=== PATIENT | female | born 1940 | race Caucasian/White ===

== ENCOUNTER 2020-01-04 14:53 | Outpatient (CLI) | payer MEDICARE, SELFPAY ==
--- NOTE | 2020-01-04 15:18 | XR_ITS ---
WS: [id number] SHOULDER RIGHT TECHNIQUE: 3 views of the right shoulder CLINICAL INFORMATION: SHOULDER PAIN, RIGHT COMPARISON: None. FINDINGS: Normal acromioclavicular joint. Normal glenohumeral joint. Acromion is normal in appearance. Normal g lenoid. No evidence of acute fracture dislocation. Aortic calcification. 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 No acute fra ctures.
--- NOTE | 2020-01-04 15:18 | XR_ITS ---
WS: [id number] SCREENING DEXA SCAN [facility] CLINICAL INFORMATION: POSTMENOPAUSAL STATUS COMPARISON: None. FINDINGS: The L1-L4 bone mineral density measures 1.070 g/cm2. This corresponds to a T score score of -0.9 and Z score of 0.9. Left femoral neck bone mineral density measures 0.851 g/cm2. This corresponds to a T score of -1.2 an d Z score of 0.8. Right femoral neck bone mineral density measures 0.896 g/cm2. This corresponds to a T score -0.9of an d Z score of 1.2. Mean femoral neck bone mineral density measures 0.874 g/cm2. This corresponds to a T score of -1.1 an d Z score of 1.0. XR/XR DEXA axial skeleton* [id number] IMPRESSION: Osteopenia Patient's FRAX calculated 10 year probability for major osteoporotic fracture i s 15.5 % and osteoporotic hip fracture is 4.7%.
== END 2020-01-04 14:54 | disposition home or self-care (01) ==
PROVIDERS: Family Provider Electrodiagnostic Medicine; PCP Electrodiagnostic Medicine; Visit Provider Electrodiagnostic Medicine
DX: Z78.0 Asymptomatic menopausal state (principal); M19.011 Primary osteoarthritis, right shoulder; M25.511 Pain in right shoulder; M85.89 Other specified disorders of bone density and structure, multiple sites
CPT/HCPCS: 73030; 77080

== ENCOUNTER 2023-07-22 18:34 | Inpatient (IN) | payer MEDICARE, SELFPAY ==
[2023-07-22 18:37] VITALS: BP 110/44; PULSE 83; RESP 17; TEMP 36.4; O2SAT 93; BMI 29.2
--- NOTE | 2023-07-22 18:48 | CTR_ITS ---
PROCEDURE INFORMATION: Exam: CT Abdomen And Pelvis With Contrast Exam date and time: 07/22/2023 8:06 PM Age: 83 years old Clinical indication: Vomiting; Abdominal pain; Generalized; Additional info: Abd pain TECHNIQUE: Imaging protocol: Computed tomography of the abdomen and pelvis with contrast. Radiation optimization: All CT scans at this facility use at least one of these dose optimization techniques: automated exposure control; mA and/or kV adjustment per patient size (includes targeted exams where dose is matched to clinical indication); or iterative reconstruction. Contrast material: OMNI 350; Contrast volume: 100 ml; Contrast route: INTRAVENOUS (IV); COMPARISON: No relevant prior studies available. RADIATION DOSE METRICS: Total DLP (mGy-cm): 679.34 FINDINGS: Heart: Severe mitral annular calcifications present. Coronary arteries: Coronary arterial atherosclerotic calcifications are present. Liver: Normal. No mass. Gallbladder and bile ducts: Normal. No calcified stones. No ductal dilation. Pancreas: Normal. No ductal dilation. Spleen: Normal. No splenomegaly. Adrenal glands: Normal. No mass. Kidneys and ureters: Normal. No hydronephrosis. Stomach and bowel: Short segment of circumferential bowel wall thickening in the proximal transverse colon with no diverticula. Findings can be seen the setting inflammatory or infectious colitis. Appendix: No evidence of appendicitis. Intraperitoneal space: Unremarkable. No free air. No significant fluid collection. Vasculature: Atherosclerotic disease. Lymph nodes: Unremarkable. No enlarged lymph nodes. Urinary bladder: Unremarkable as visualized. Reproductive: Unremarkable as visualized. Bones/joints: Severe degenerative disc disease at L4-L5 and L5-S1 with grade 1 anterolisthesis of L3 on L4. Soft tissues: Unremarkable. CT/CT abdomen pelvis w con* [id number] IMPRESSION: Short segment of circumferential bowel wall thickening in the proximal transverse colon with no diverticula. Findings can be seen the setting inflammatory or infectious colitis. The appendix is not visualized but there are no secondary signs of acute appendicitis.
--- NOTE | 2023-07-22 18:48 | PC.NURSE ---
pt o2 pt taken off o2 at 184
--- NOTE | 2023-07-22 18:51 | ED_ITS ---
HPI - Abdominal Pain 2 General: Chief Complaint: Abdominal Pain Stated Complaint: lower abd pain Time Seen by Provider: 07/22/23 18:38 Source: patient Mode of arrival: ambulatory Limitations: no limitations History of Present Illness: 83-year-old female states 3 to 4 hours a go started having some left lower quadrant abdominal pain states it has been sharp in nature she did vomit once states the pain has been constant she rates it a 7 out of 10 currently she denies any chest pain denies any fevers denies any shortness of breath denies any diarrhea. Associated Symptoms: Reports nausea and vomiting; Denies chills, diarrhea, dysuria and fever(s) Review of Systems 2 Const: Denies: fever(s), chills, body aches or change in appetite ENMT: Denies: throat pain or dental pain Card: Denies: chest pain Resp: Denies: dyspnea GI: Reports: abdominal pain, nausea and vomiting; Denies: diarrhea : Denies: dysuria Musc: Denies: neck pain or back pain Skin/Breast: Denies: rash Neuro: Denies: headache(s) Physical Exam 2 Const: COMMON NORMALS: no acute distress, patient oriented x3 and healthy appearing HENMT: COMMON NORMALS: normocephalic and atraumatic HEAD & SCALP: n ormocephalic and atraumatic Neck/C-Spine: COMMON NORMALS: full ROM and supple Chest: COMMONS NORMALS: normal inspection of the chest Resp: COMMON NORMALS: normal respiratory effort, No use of accessory muscles and clear to auscultation bilaterally AUSCULTATION: clear to auscultation bilaterally Cardio: COMMON NORMALS: regular rate, regular rhythm and No murmurs present (Cardio) RATE: regular rate RHYTHM: regular rhythm GI: COMMON NORMALS: Normal to inspection, nondistended, normoactive bowel sounds present, Soft to palpation and no masses PALPATION: Yes Soft to palpation and Yes Tenderness to palpation present (GI) Details: LLQ Extremity: COMMON NORMALS: normal to inspection and full ROM Neuro: COMMON NORMALS: patient oriented x3, moves all extremities and no focal motor deficits Psych: COMMON NORMALS: mental status grossly normal, Normal thought process present and cooperative THOUGHT PROCESS: Normal thought process present Skin: COMMON NORMALS: no rashes or lesions noted and no wounds GENERAL SKIN EXAM: no rashes or lesions noted Course 2 Vital Signs: Vital signs: Vital Signs Temperature 97.6 F 07/22/23 18:37 Pulse Rate 83 07/22/23 18:37 Respiratory Rate 18 07/22/23 19:37 Blood Pressure 110/44 07/22/23 18:37 Pulse Oximetry 93 07/22/23 18:37 Oxygen Delivery Me thod Nasal Cannula 07/22/23 18:37 Oxygen Flow Rate 3 07/22/23 18:37 MDM - Abdominal Pain Medical Decision Making Patient presents here with abdominal pain does have an elevated white count CT shows a likely colitis she has no signs of ischemic bowel here. She is hypokalemic could be from vomiting will replace her potassium start IV antibiotics I spoke to the hospitalist will admit. Medical Records I reviewed the patient's medical records. Lab Data I reviewed the patient's lab results. 07/22/23 18:44 07/22/23 18:44 Labs/Radiology: Radiology Impressions Abdomen/Pelvis CT 07/22/23 18:48 IMPRESSION: Short segment of circumferential bowel wall thickening in the proximal transverse colon with no diverticula. Findings can be seen the setting inflammatory or infectious colitis. The appendix is not visualized but there are no secondary signs of acute appendicitis. Laboratory Results WBC 27.51 10^3/uL (3.29-11.43) H 07/22/23 18:44 RBC 4.02 10^6/uL (3.85-5.65) 07/22/23 18:44 Hgb 11.60 g/dL (11.27-16.99) 07/22/23 18:44 Hct 35.4 % (36-47) L 07/22/23 18:44 MCV 88.1 fl (85-98) 07/22/23 18:44 MCH 28.9 pg (27-33) 07/22/23 18:44 MCHC 32.8 g/dL (30-55) 07/22/23 18:44 RDW 14.9 % (12.1-15.1) 07/22/23 18:44 Plt Count 76 10^3/cmm (157-399) L 07/22/23 18:44 MPV 13.0 fL (7.4-10.4) H 07/22/23 18:44 Neut % (Auto) 60.3 % 07/22/23 18:44 Lymph % (Auto) 2.6 % 07/22/23 18:44 [place] % (Auto) 35.1 % 07/22/23 18:44 Eos % (Auto) 0.1 % 07/22/23 18:44 Baso % (Auto) 0.1 % 07/22/23 18:44 Neut # (Auto) 16.62 10^3/uL (1.8-7.7) H 07/22/23 18:44 Lymph # (Auto) 0.7 10^3/uL (0.8-4.8) L 07/22/23 18:44 [place] # (Auto) 9.7 10^3/uL (0.2-0.9) H 07/22/23 18:44 Eos # (Auto) 0.0 10^3/uL (0.0-0.8) 07/22/23 18:44 Baso # (Auto) 0.0 10^3/uL (0.0-0.1) 07/22/23 18:44 Nucleated RBC % (auto) 0 % 07/22/23 18:44 Nucleated RBCs # 0.0 /100WBC 07/22/23 18:44 Sodium 143 mmol/L (136-145) 07/22/23 18:44 Potassium 2.4 mmol/L (3.5-5.1) L* 07/22/23 18:44 Chloride 103 mmol/L (98-107) 07/22/23 18:44 Carbon Dioxide 23 mmol/L (22-29) 07/22/23 18:44 Anion Gap 19.4 (5-19) H 07/22/23 18:44 BUN 13 mg/dL (8-23) 07/22/23 18:44 Creatinine 1.1 mg/dL (0.5-0.9) H 07/22/23 18:44 GFR Calculation Not Reportable 07/22/23 18:44 Glucose 120 mg/dL (65-115) H 07/22/23 18:44 Calculated Osmolality 297 mOsm/kg (285-295) H 07/22/23 18:44 Calcium 10.4 mg/dL (8.5-10.5) 07/22/23 18:44 Total Bilirubin 2.1 mg/dL (0.15-1.2) H 07/22/23 18:44 AST 25 U/L (0-32) 07/22/23 18:44 ALT 11 U/L (0-33) 07/22/23 18:44 Alkaline Phosphatase 64 U/L (35-105) 07/22/23 18:44 Total Protein 7.6 g/dL (6.6-8.7) 07/22/23 18:44 Albumin 4.2 g/dL (3.5-5.2) 07/22/23 18:44 Globulin 3.4 g/dL (1.3-4.6) 07/22/23 18:44 Lipase 16 U/L (13-60) 07/22/23 18:44 Urine Color Yellow (Yellow) 07/22/23 19:44 Urine Appearance Clear (CLEAR) 07/22/23 19:44 Urine pH 6.5 (5-7) 07/22/23 19:44 Ur Specific [place] 1.010 (1.005-1.030) 07/22/23 19:44 Urine Protein Neg (Negative) 07/22/23 19:44 Urine Glucose (UA) Norm (Normal) 07/22/23 19:44 Urine Ketones 1+ (Negative) H 07/22/23 19:44 Urine Blood Neg (Negative) 07/22/23 19:44 Urine Nitrate Negative (Negative) 07/22/23 19:44 Urine Bilirubin Neg (Negative) 07/22/23 19:44 Urine Urobilinogen Neg mg/dL (Negative) 07/22/23 19:44 Ur Leukocyte Esterase Trace (Negative) H 07/22/23 19:44 Urine RBC None /hpf (0-2) 07/22/23 19:44 Urine WBC 0-4 /hpf (0-5) H 07/22/23 19:44 Ur Squamous Epith Cells 0-4 /hpf (0-5) H 07/22/23 19:44 Ur Transition Epith Cell 0-4 /hpf 07/22/23 19:44 Amorphous Sediment Not Reportable 07/22/23 19:44 Urine Bacteria Trace /hpf (NONE) 07/22/23 19:44 Urine Mucus 1+ /hpf 07/22/23 19:44 All radiology interpretation(s) finalized by discharge Discharge Plan Discharge Patient Disposition: Admitted As Inpatient Clinical Impression: Abdominal pain, Colitis, Hypokalemia Condition: Stable Referrals: Dave Gross DO [Primary Care Provider] - Coding Level of Care Code ED Shotblast Equipment Operator for Joni iRbera
[2023-07-22 19:16] LABS: Basophils % 0.1 %; Eosinophils % 0.1 %; Hematocrit 35.4 % (36-47); Lymphocytes # 0.7 10^3/uL (0.8-4.8); Lymphocytes % 2.6 %; Mean Corpuscular HGB Conc 32.8 g/dL (30-55); Mean Corpuscular Hemoglobin 28.9 pg (27-33); Mean Corpuscular Volume 88.1 fl (85-98); Monocytes # 9.7 10^3/uL (0.2-0.9); Monocytes % 35.1 %; Neutrophils # 16.62 10^3/uL (1.8-7.7); Neutrophils % 60.3 %; Nucleated Red Blood Cells % 0 %; Platelet Count 76 10^3/cmm (157-399); Red Blood Count 4.02 10^6/uL (3.85-5.65); Red Cell Distribution Width 14.9 % (12.1-15.1); White Blood Count 27.51 10^3/uL (3.29-11.43)
[2023-07-22 19:31] LABS: Alanine Aminotransferase 11 U/L (0-33); Albumin Level 4.2 g/dL (3.5-5.2); Alkaline Phosphatase 64 U/L (35-105); Blood Urea Nitrogen 13 mg/dL (8-23); Calcium 10.4 mg/dL (8.5-10.5); Carbon Dioxide 23 mmol/L (22-29); Chloride 103 mmol/L (98-107); Globulin 3.4 g/dL (1.3-4.6); Glucose 120 mg/dL (65-115); Lipase 16 U/L (13-60); Osmolality Calculated 297 mOsm/kg (285-295); Sodium 143 mmol/L (136-145); Total Bilirubin 2.1 mg/dL (0.15-1.2); Total Protein 7.6 g/dL (6.6-8.7)
[2023-07-22 19:37] VITALS: RESP 18
[2023-07-22] MEDS: morphine 4 mg/mL SDV 1 mL IVP (19:37)
[2023-07-22] MEDS: ondansetron 2 mg/ML SDV 2 mL 4 MG IVP (19:38)
[2023-07-22 19:41] LABS: Anion Gap 19.4 (5-19); Aspartate Amino Transferase 25 U/L (0-32)
[2023-07-22 19:42] LABS: Potassium 2.4 mmol/L (3.5-5.1)
[2023-07-22 19:44] LABS: Slide Review Slide Review Perform
[2023-07-22] MEDS: iohexol 350 mg/mL 500 mL Btl (per mL) IV (19:57)
[2023-07-22] MEDS: potassium chloride ER 20 mEq Tablet 40 MEQ PO (20:22)
--- NOTE | 2023-07-22 20:25 | XRR_ITS ---
PROCEDURE INFORMATION: Exam: XR Chest Exam date and time: 07/22/2023 8:36 PM Age: 83 years old Clinical indication: Pain; Other: Abdominal; Additional info: Abd pain TECHNIQUE: Imaging protocol: Radiologic exam of the chest. Views: 1 view. COMPARISON: CT abdomen pelvis w con* [id number] 07/22/2023 8:06 PM FINDINGS: Lungs: Increased interstitial markings with peribronchial cuffing in the lung bases are nonspecific but can be seen the setting of bronchitis, viral infection and small-vessel airways disease. Pleural spaces: Unremarkable. No pleural effusion. No pneumothorax. Heart/Mediastinum: Unremarkable. No cardiomegaly. Bones/joints: Unremarkable. XR/XR chest 1V portable [id number] IMPRESSION: Increased interstitial markings with peribronchial cuffing in the lung bases are nonspecific but can be seen the setting of bronchitis, viral infection and small-vessel airways disease.
[2023-07-22 20:34] LABS: Add Urine Microscopic? YES; Bilirubin Urine Neg (Negative); Blood Urine Neg (Negative); Glucose Urine UA Norm (Normal); Ketones Urine 1+ (Negative); Leukocyte Esterase Urine Trace (Negative); Nitrate Urine Negative (Negative); Protein Urine Neg (Negative); Urine Appearance Clear (CLEAR); Urine Color Yellow (Yellow); Urobilinogen Urine Neg (Negative); pH Urine 6.5 (5-7)
[2023-07-22 20:36] LABS: Add Urine Culture? No; Bacteria Urine TRACE /hpf; Mucus Urine 1+ /hpf; Squamous Epithelial Cell Urine 0-4 /hpf (0-5); Transitional Epi Cells Urine 0-4 /hpf; WBC Urine 0-4 /hpf (0-5)
[2023-07-22 20:48] LABS: Magnesium 1.8 mg/dL (1.7-2.3)
[2023-07-22 20:53] VITALS: BP 122/70; O2SAT 91
[2023-07-22] MEDS: metroNIDAZOLE IV 500 MG/100 ML PREMIX 100 MG IV (21:22)
[2023-07-22] MEDS: ciprofloxacin 400 MG/200 ML PREMIX 200 MG IV (21:22)
[2023-07-22 21:30] VITALS: BP 100/44; PULSE 85; O2SAT 91
--- NOTE | 2023-07-22 21:34 | PC.NURSE ---
REPORT CALLED TO GISELE MCKINNON ON [facility]. ALL QUESTIONS AND CONCERNS ADDRESSED AT TIME OF REPORT.
[2023-07-22 22:01] VITALS: PULSE 94
[2023-07-22 22:05] VITALS: BMI 28.6
--- NOTE | 2023-07-22 22:30 | P.HP_ITS ---
Providers/Chief Complaint 2 Admitting Physician: Que Mercado MD Primary Care Provider: Dave Gross DO Chief Complaint: lower abd pain History of Present Illness Reji Sage is a 83 year old female who presents to the emergency room today complaining of 3 to 4 days of abdominal pain. History is pretty vague patient is unable to specify to me any details., she is very hard of hearing which makes conversation difficult. She states that she started developing abdominal pain localized mainly in the lower abdomen 3 to 4 days ago. She is unable to tell me if there have been any exacerbating or relieving factors. She reports normal bowel movements. States that her last bowel movement was yesterday. She did not notice any blood. She has had no diarrhea. She has had 2-3 episodes of vomiting since presenting into the emergency room today. He is only taking Tylenol at home. She has not noted any fever. She tells me that she does not have any other known comorbidities. Review of her past records dating back to 2016 shows that she has a history of longstanding neutropenia and thrombocytopenia which was thought to be either related to EMILY inhibitors versus myelodysplastic syndrome. She had declined a bone marrow evaluation today. Records also show that she has a history of positive KRISTIN titer 1: 80 and HTN. Review of Systems 2 General: Reports: 10 or more systems reviewed and unremarkable except in HPI and below Const: Denies: fever(s), chills or body aches Eyes: Denies: change in vision, blurry vision or photophobia ENMT: Reports: hoarseness; Denies: throat pain, enlarged tonsils, odynophagia or nasal congestion Card: Denies: chest pain, palpitations, irregular heart rhythm, edema, swelling of feet/ankles, lightheadedness, pre-syncope, dyspnea on exertion or orthopnea Resp: Denies: dyspnea, productive cough, non-productive cough, wheezing, stridor, pain on inspiration, change in phlegm color, hemoptysis or chest congestion GI: Denies: abdominal pain, nausea, vomiting, hematemesis, coffee ground emesis, dysphagia, heartburn, diarrhea, constipation, GI cramping, change in stool character, hematochezia or melena : Denies: flank pain, difficulty voiding, dysuria, urinary frequency, urinary urgency, urinary hesitancy or hematuria Musc: Denies: neck pain, back pain, extremity pain, joint swelling, joint warmth or deformity Neuro: Denies: headache(s), numbness in extremities, weakness in extremities, sensory changes, difficulty walking, frequent falls, dizziness, vertigo, behavioral changes, Slurred speech present or seizure-like activity Psych: Denies: anxiety, depression, suicidal ideation or homicidal ideation Endo: Denies: polyuria, polydipsia, tired all the time, cold intolerance or hot flashes Alfred/Lymph: Denies: easy bruising or easy bleeding Medications/Allergies Allergies Allergy/AdvReac Type Severity Reaction Status Date / Time No Known Allergies Allergy Verified 07/22/23 18:46 PFSH Acute 2 PFSH: Medical History (Updated 07/23/23 @ 02:42 by Kelley Simms MD) Hypertension Positive KRISTIN (antinuclear antibody) 1: 80 Neutropenia Surgical History (Updated 07/23/23 @ 02:14 by Kelley Simms MD) H/O: hysterectomy Family History Other Alzheimer's dementia Cancer Social History (Updated 07/23/23 @ 02:15 by Kelley Simms MD) Smoking and tobacco/nicotine status: never used tobacco/nicotine Alcohol intake: never Vitals/I&O/Wt Last Vital Signs Temp 99.4 F 07/23/23 00:00 Pulse 90 07/23/23 00:00 Resp 17 07/23/23 00:00 BP 103/66 07/23/23 00:00 Pulse Ox 96 07/23/23 00:00 O2 Del Method Nasal Cannula 07/23/23 00:00 O2 Flow Rate 1.5 07/22/23 21:30 07/22/23 07/22/23 07/23/23 14:59 22:59 06:59 Intake Total 300 / 300 Balance 300 / 300 Weight last 48 hrs Weight 66.587 kg Weight 68.039 kg Physical Exam 2 Narrative: General: dehydrated, dry parched skin , very hard of hearing HEENT: PERRLA, pupils bilaterally equal and reactive, pallors not present Chest: Normal vesicular breath sounds, no added sounds, equal good air entry bilaterally CVS: S1-S2 regular, no murmurs, no tachycardia, no gallops, no rubs Abdomen: Soft, tender to palpation over lower abdomen, below the umbilicus , no organomegaly, bowel sounds present Neuro: No focal deficits, no facial deformity, AO x3, power 5/5 in all limbs Data 07/22/23 18:44 07/22/23 18:44 Other Labs: Radiology Impressions Abdomen/Pelvis CT 07/22/23 18:48 IMPRESSION: Short segment of circumferential bowel wall thickening in the proximal transverse colon with no diverticula. Findings can be seen the setting inflammatory or infectious colitis. The appendix is not visualized but there are no secondary signs of acute appendicitis. Chest X-Ray 07/22/23 20:25 IMPRESSION: Increased interstitial markings with peribronchial cuffing in the lung bases are nonspecific but can be seen the setting of bronchitis, viral infection and small-vessel airways disease. Laboratory Results WBC 27.51 10^3/uL (3.29-11.43) H 07/22/23 18:44 RBC 4.02 10^6/uL (3.85-5.65) 07/22/23 18:44 Hgb 11.60 g/dL (11.27-16.99) 07/22/23 18:44 Hct 35.4 % (36-47) L 07/22/23 18:44 MCV 88.1 fl (85-98) 07/22/23 18:44 MCH 28.9 pg (27-33) 07/22/23 18:44 MCHC 32.8 g/dL (30-55) 07/22/23 18:44 RDW 14.9 % (12.1-15.1) 07/22/23 18:44 Plt Count 76 10^3/cmm (157-399) L 07/22/23 18:44 MPV 13.0 fL (7.4-10.4) H 07/22/23 18:44 Neut % (Auto) 60.3 % 07/22/23 18:44 Lymph % (Auto) 2.6 % 07/22/23 18:44 [place] % (Auto) 35.1 % 07/22/23 18:44 Eos % (Auto) 0.1 % 07/22/23 18:44 Baso % (Auto) 0.1 % 07/22/23 18:44 Neut # (Auto) 16.62 10^3/uL (1.8-7.7) H 07/22/23 18:44 Lymph # (Auto) 0.7 10^3/uL (0.8-4.8) L 07/22/23 18:44 [place] # (Auto) 9.7 10^3/uL (0.2-0.9) H 07/22/23 18:44 Eos # (Auto) 0.0 10^3/uL (0.0-0.8) 07/22/23 18:44 Baso # (Auto) 0.0 10^3/uL (0.0-0.1) 07/22/23 18:44 Nucleated RBC % (auto) 0 % 07/22/23 18:44 Nucleated RBCs # 0.0 /100WBC 07/22/23 18:44 Sodium 143 mmol/L (136-145) 07/22/23 18:44 Potassium 2.4 mmol/L (3.5-5.1) L* 07/22/23 18:44 Chloride 103 mmol/L (98-107) 07/22/23 18:44 Carbon Dioxide 23 mmol/L (22-29) 07/22/23 18:44 Anion Gap 19.4 (5-19) H 07/22/23 18:44 BUN 13 mg/dL (8-23) 07/22/23 18:44 Creatinine 1.1 mg/dL (0.5-0.9) H 07/22/23 18:44 GFR Calculation Not Reportable 07/22/23 18:44 Glucose 120 mg/dL (65-115) H 07/22/23 18:44 Calculated Osmolality 297 mOsm/kg (285-295) H 07/22/23 18:44 Lactate 8.6 mmol/L (0.5-2.2) H* 07/22/23 10:25 Calcium 10.4 mg/dL (8.5-10.5) 07/22/23 18:44 Magnesium 1.8 mg/dL (1.7-2.3) 07/22/23 18:44 Total Bilirubin 2.1 mg/dL (0.15-1.2) H 07/22/23 18:44 AST 25 U/L (0-32) 07/22/23 18:44 ALT 11 U/L (0-33) 07/22/23 18:44 Alkaline Phosphatase 64 U/L (35-105) 07/22/23 18:44 Total Protein 7.6 g/dL (6.6-8.7) 07/22/23 18:44 Albumin 4.2 g/dL (3.5-5.2) 07/22/23 18:44 Globulin 3.4 g/dL (1.3-4.6) 07/22/23 18:44 Lipase 16 U/L (13-60) 07/22/23 18:44 Urine Color Yellow (Yellow) 07/22/23 19:44 Urine Appearance Clear (CLEAR) 07/22/23 19:44 Urine pH 6.5 (5-7) 07/22/23 19:44 Ur Specific [place] 1.010 (1.005-1.030) 07/22/23 19:44 Urine Protein Neg (Negative) 07/22/23 19:44 Urine Glucose (UA) Norm (Normal) 07/22/23 19:44 Urine Ketones 1+ (Negative) H 07/22/23 19:44 Urine Blood Neg (Negative) 07/22/23 19:44 Urine Nitrate Negative (Negative) 07/22/23 19:44 Urine Bilirubin Neg (Negative) 07/22/23 19:44 Urine Urobilinogen Neg mg/dL (Negative) 07/22/23 19:44 Ur Leukocyte Esterase Trace (Negative) H 07/22/23 19:44 Urine RBC None /hpf (0-2) 07/22/23 19:44 Urine WBC 0-4 /hpf (0-5) H 07/22/23 19:44 Ur Squamous Epith Cells 0-4 /hpf (0-5) H 07/22/23 19:44 Ur Transition Epith Cell 0-4 /hpf 07/22/23 19:44 Amorphous Sediment Not Reportable 07/22/23 19:44 Urine Bacteria Trace /hpf (NONE) 07/22/23 19:44 Urine Mucus 1+ /hpf 07/22/23 19:44 Influenza Type A Ag negative (Negative) 07/22/23 22:26 Influenza Type B Ag negative (Negative) 07/22/23 22:26 SARS-CoV-2 Ag (Rapid) negative (Negative) 07/22/23 22:26 A&P Assessment and plan (1) Colitis: (2) Hypokalemia: (3) Thrombocytopenia: Plan 83-year-old lady presenting with 2-3 days of abdominal pain and multiple episodes of vomiting today. Clinically she appears to be dehydrated, she has dry parched skin and mucous membranes, evidence of hypokalemia which may be related to GI loss from vomiting. denies any diarrhea or blood in stool CT abdomen shows Short segment of circumferential bowel wall thickening in the proximal transverse colon suggestive of colitis. Check Lactate and blood cx Admit to med/surg Unable to keep po intake at this time and has signs of dehydration - started on iv abx in ER- received ciprofloxacin and metronidazole - continue inpatient treatment with Piperacillin tazobactam . start D5NS @ 75 cc /hr NPo except meds for bowel rest Thrombocytopenia, may be related to acute infection but per review of past notes she has long standing thrombocytopenia and leukopenia between [id number]- recommneded BM biopsy for possible MDS but was refused. Trend closely. Currently no signs of active bleedin g DVT ppx: heparin 5000 q12h Full code Attestations 2 Medical Necessity Statement*: > 2 midnight admission is anticipated Coding Level of Care Code Acute Code for Chg Fwd Moderate MDM includes number and complexity of problems actively addressed during encounter, amount and/or complexity of data reviewed/ordered and described risk of complication, morbidity or mortality of management as documented Diagnoses Colitis K52.9 Hypokalemia E87.6 Thrombocytopenia D69.6
[2023-07-22] MEDS: dextrose 5%-sod chloride 0.9% 1,000 ML 75 ML IV (22:45)
[2023-07-22 22:58] LABS: SARS Covid-2 Antigen negative (Negative)
[2023-07-22 23:00] LABS: Influenza A by IFA negative (Negative); Influenza B by IFA negative (Negative)
[2023-07-22 23:04] LABS: Lactate (Lactic Acid level) 8.6 mmol/L (0.5-2.2)
[2023-07-23] VITALS (8 sets, daily range): BP systolic 90–128; BP diastolic 61–73; PULSE 90–111; RESP 15–19; TEMP 36.4–37.4; O2SAT 92–97
[2023-07-23] MEDS: sodium chloride 0.9% 1,000 ML 999 ML IV ×2 (03:35→04:39)
--- NOTE | 2023-07-23 03:44 | ECG_ITS ---
[facility] Test Date: 2023-07-23 Pat Name: Reji Sage Department: Room: 267 Gender: Female Webbing Inspector: : 1940 Requested By: Kelley Simms Order Number: [id number] Pj MD: Adriana Farfan M.D. Measurements Intervals [place] Rate: 93 P: 84 TX: 166 QRS: -29 QRSD: 101 T: 12 QT: 382 QTc: 476 Interpretive Statements SINUS RHYTHM BORDERLINE LEFT AXIS DEVIATION [QRS AXIS < -20] No previous ECG available for comparison Electronically Signed On 07-23-2023 13:49:14 DERRICK BOAT LEVER OPERATOR by Adriana Farfan M.D. [id number]
[2023-07-23 07:34] LABS: Alanine Aminotransferase 10 U/L (0-33); Albumin Level 3.8 g/dL (3.5-5.2); Alkaline Phosphatase 72 U/L (35-105); Anion Gap 18.9 (5-19); Aspartate Amino Transferase 22 U/L (0-32); Blood Urea Nitrogen 18 mg/dL (8-23); Calcium 9.4 mg/dL (8.5-10.5); Carbon Dioxide 19 mmol/L (22-29); Chloride 108 mmol/L (98-107); Glucose 99 mg/dL (65-115); Osmolality Calculated 298 mOsm/kg (285-295); Sodium 143 mmol/L (136-145); Total Bilirubin 1.6 mg/dL (0.15-1.2); Total Protein 6.8 g/dL (6.6-8.7)
[2023-07-23 07:38] LABS: Potassium 2.9 mmol/L (3.5-5.1)
[2023-07-23 07:39] LABS: Lactate (Lactic Acid level) 5.9 mmol/L (0.5-2.2)
--- NOTE | 2023-07-23 07:49 | PC.NURSE ---
Notified provider that tele pharmacy held the heparin subcu due to platlets being less then 100 Also critical potassium of 2.9. RBVO for 80mEq IV once of potassium chloride, stool studies, and NPO status.
[2023-07-23] MEDS: lidocaine 1% 5 ML in potassium chloride premix 100 ML 26.25 ML IV ×2 (08:37→13:36)
[2023-07-23] MEDS: ondansetron 2 mg/ML SDV 2 mL 4 MG IVP (08:47)
[2023-07-23] MEDS: pantoprazole DR 40 mg Tablet PO (08:47)
[2023-07-23] MEDS: heparin 5,000 unit/mL INJ 1 mL 5000 UNIT SUBCUT ×2 (08:47→20:48)
[2023-07-23] MEDS: piperacillin-tazobactam 3.375 GM in sodium chloride 0.9% (plus) 50 ML IV ×2 (08:47→22:53)
--- NOTE | 2023-07-23 09:27 | PC.CHAP ---
Pastoral Care Encounter/Spiritual Assessment Type of Contact [] Declined casting plug assembler visit [] Patient/Family/Request visit [] Outpatient visit [] Follow-up visit [] Physician referral [] Code/Alert [x] Routine visit [] Staff referral [] Actively dying [] Patient sleeping [] Family support [] [] Out of room [] Palliative care [] [] Receiving care in room [] Pre-surgical visit [] Trauma [] Long length of stay [] ICU visit [] Other: Relational/Emotional Strength [x] Patient feels connected with others/family/visitors/staff [] Distress [] Loneliness/isolation [] Abandonment Spirituality of Patient [x] Person of Tatiana [x] Attends Adventist of their [place] [x] Believes in Prayer [] Reads Bible or Lutheran materials [] There are Spiritual issues to be addressed Dispensary Clerk Interventions [x] Prayer [x] Active listening [] Non-anxious presence [x] Spiritual/emotional support [] Crisis/trauma care [] Spiritual counseling [] Bereavement support [] Provided bereavement packet [] Provided Bible/devotional materials [] Provided toy/stuffed animal, coloring book to patient or family member [] Provided Communion [] Anointing/[place] [] Salvation [x] Completed spiritual assessment [] Other: Impact on Illness or Injury [] Angry [] Fearful [] Anxious [] Often cries [] Exhaustion [] Unable to work [] Unable to attend scientology [] Unable to walk/stand [] Unable to read [] Unable to drive [] Unable to eat/drink [] Unable to sleep [] Unable to be with family [] Patient intubated [] Other: Summary Time spent with patient 5 min
[2023-07-23 09:53] LABS: Hematocrit 34.3 % (36-47); Mean Corpuscular HGB Conc 32.7 g/dL (30-55); Mean Corpuscular Volume 88.9 fl (85-98); Mean Platelet Volume 13.2 fL (7.4-10.4); Platelet Count 79 10^3/cmm (157-399); Red Blood Count 3.86 10^6/uL (3.85-5.65); Red Cell Distribution Width 15.5 % (12.1-15.1)
[2023-07-23 10:02] LABS: Erythrocyte Sedimentation Rate 8 mm/hr (0-15)
[2023-07-23 10:22] LABS: Slide Review Slide Review Perform
[2023-07-23 10:26] LABS: Absolute Neutrophil 41.5 10^3/cmm (1.4-6.5); Absolute Segmented Neutrophil 30.6 10/cmm (1.6-7.1); Eosinophils 0 %; Lymphocytes 4 %; Lymphocytes Absolute 2.9 10^3/cmm (1.2-3.4); Monocytes Absolute 6.3 10^3/cmm (0.1-0.6); Platelet Estimate Decreased (Normal); Segmented Neutrophils 53 %; Total Cells Counted 100 (0-100)
[2023-07-23 10:41] LABS: Procalcitonin 1.52 ng/mL (0-0.5); Vitamin B12 1193 pg/mL (232-1245)
[2023-07-23 10:52] LABS: C Reactive Protein 294.4 mg/L (0.0-4.9); Iron 26 ug/dL (37-145); Percent Saturation 15.1 % (20-50); Total Iron Binding Capacity 172 mcg/dl; Unsaturated Iron Binding 146 ug/dL (112-347)
[2023-07-23 10:57] LABS: LAB Peripheral Smear Sent for Review
[2023-07-23 11:40] LABS: Lactate Dehydrogenase 321 U/L (135-214)
--- NOTE | 2023-07-23 13:12 | P.PN_ITS ---
Subjective 2 Subjective: Admitted overnight. H&P and labs appreciated. Today morning seen laying comfortably in bed, wakes up to verbal stimulus, on waking up patient is hard of hearing but is alert and oriented to self and being in the hospital. Family numbers at bedside. As per family members patient does have dementia with episodes of confusion and loss of memory. Patient is repeating certain questions multiple times during examination. 1 episode of vomiting since admission 1 episode of small diarrhea as per the nursing staff. Patient complaining of lower abdominal pain Vitals/I&O/Wt Last Vital Signs Temp 97.6 F 07/23/23 12:00 Pulse 105 H 07/23/23 12:00 Resp 15 07/23/23 12:00 BP 128/72 07/23/23 12:00 Pulse Ox 97 07/23/23 12:00 O2 Del Method Nasal Cannula 07/23/23 12:00 O2 Flow Rate 1.5 07/23/23 08:48 07/22/23 07/23/23 07/23/23 22:59 06:59 14:59 Intake Total 300 / 300 2000 / 2300 950 / 950 Balance 300 / 300 2000 / 2300 950 / 950 Weight last 48 hrs Weight 69.144 kg Weight 66.587 kg Weight 68.039 kg Physical Exam 2 Narrative: General: AO x 1-2, mildly dehydrated, hard of hearing HEENT: PERRLA, pupils bilaterally equal and reactive, pallors not present Chest: Normal vesicular breath sounds, no added sounds, equal good air entry bilaterally CVS: S1-S2 regular, no murmurs, no tachycardia, no gallops, no rubs Abdomen: Soft, tender to palpation over lower abdomen, below the umbilicus , no organomegaly, bowel sounds present Neuro: No focal deficits, no facial deformity, power 5/5 in all limbs Data 07/23/23 09:34 07/23/23 06:30 A&P Assessment and plan (1) Colitis: (2) Hypokalemia: (3) Thrombocytopenia: (4) Leukocytosis: (5) Dementia: Plan 83-year-old lady presenting with 2-3 days of abdominal pain and multiple episodes of vomiting today. Colitis: Appreciate CT abdomen pelvis results. Concerning for infectious versus inflammatory process. Continue with IV hydration. Switch to D5 half NS at 20 minutes of potassium at 75 cc/h. Check stool studies, blood culture, ESR, procalcitonin, CRP, Continue with IV Zosyn for now. Elevated lactate: Trending down from 8.6-4.6. Still elevated. Continue with IV hydration as above. Will repeat later in the day. For now clinically low suspicion of ischemic colitis but if needed will repeat CTA. Thrombocytopenia/leukocytosis: Thrombocytopenia seems to be new. On review from past platelet counts were normal. Patient does have history of chronic neutropenia with concerns for MDS though patient in the past declined bone marrow continues to follow-up with Dr. Fields in oncology office in 2017. Given extreme leukocytosis with predominant neutrophils, 11% band and 1% atypical lymphocytes for now we will check peripheral smear, flow cytometry, LDH as there is a possibility of MDS conversion to AML. Checking stool studies for celiac as above. Monitor daily for now. Hemoglobin stable. Hypokalemia: Replete with 80 mg of IV and 80 mEq of oral. Repeat in evening. CODE STATUS: Discussed in detail with patient and at bedside. will the DPOA. Patient does not want any heroic measures including chest compressions or life support. CODE STATUS DNR/DNI. Advance diet to clear liquid diet. Protonix OPD prophylaxis SCDs for DVT prophylaxis along with heparin 5000 every 12 hourly. Monitor platelet counts. Attestations 2 Medical Necessity Statement*: Requires further hospitalization for management of colitis, severe leukocytosis with thrombocytopenia with concerns for possible leukemoid reaction versus AML while other infectious causes are ruled out Diagnoses Colitis K52.9 Hypokalemia E87.6 Thrombocytopenia D69.6 Leukocytosis D72.829 Dementia F03.90
[2023-07-23 17:38] LABS: Lactic Sepsis W/Reflex 4.1 mmol/L (0.5-2.2)
[2023-07-23 18:58] LABS: Reflex Lactate Order REFLEX LACTIC ORDERD
[2023-07-23 20:24] LABS: Lactic Acid level (Lactate) 4.5 mmol/L (0.5-2.2)
[2023-07-23] MEDS: D5-NS 0.45% + KCL 20 mEq 20 MEQ/1,000 ML BAG 75 MEQ IV (22:53)
[2023-07-24] VITALS (7 sets, daily range): BP systolic 115–154; BP diastolic 66–85; PULSE 83–100; RESP 16–17; TEMP 36.3–36.9; O2SAT 93–98
[2023-07-24 05:26] LABS: Basophils # 0.1 10^3/uL (0.0-0.1); Basophils % 0.2 %; Hematocrit 31.5 % (36-47); Lymphocytes # 1.4 10^3/uL (0.8-4.8); Lymphocytes % 4.1 %; Mean Corpuscular HGB Conc 32.1 g/dL (30-55); Mean Corpuscular Hemoglobin 28.7 pg (27-33); Mean Corpuscular Volume 89.5 fl (85-98); Monocytes # 4.9 10^3/uL (0.2-0.9); Monocytes % 14.4 %; Neutrophils # 25.74 10^3/uL (1.8-7.7); Neutrophils % 75.4 %; Nucleated Red Blood Cells % 0 %; Platelet Count 69 10^3/cmm (157-399); Red Blood Count 3.52 10^6/uL (3.85-5.65); Red Cell Distribution Width 15.9 % (12.1-15.1)
[2023-07-24 05:44] LABS: Estmated Average Glucose 105; Hemoglobin A1C 5.3 % (4.0-6.0)
[2023-07-24 05:49] LABS: White Blood Count 34.16 10^3/uL (3.29-11.43)
[2023-07-24 05:50] LABS: Alanine Aminotransferase 12 U/L (0-33); Albumin Level 3.3 g/dL (3.5-5.2); Alkaline Phosphatase 81 U/L (35-105); Anion Gap 16.8 (5-19); Aspartate Amino Transferase 35 U/L (0-32); Blood Urea Nitrogen 19 mg/dL (8-23); Calcium 8.9 mg/dL (8.5-10.5); Carbon Dioxide 20 mmol/L (22-29); Chloride 114 mmol/L (98-107); Globulin 3.3 g/dL (1.3-4.6); Glucose 102 mg/dL (65-115); Osmolality Calculated 306 mOsm/kg (285-295); Potassium 3.8 mmol/L (3.5-5.1); Sodium 147 mmol/L (136-145); Total Bilirubin 1.3 mg/dL (0.15-1.2); Total Protein 6.6 g/dL (6.6-8.7)
[2023-07-24 06:01] LABS: Chol HDL Ratio 2.42 mg/dL (0.0-4.40); Cholesterol 80 mg/dL (0-200); HDL Cholesterol 33 mg/dL (60-100); LDL Cholesterol Calculated 33 mg/dL (50-129); Magnesium 1.8 mg/dL (1.7-2.3); Triglycerides 68 mg/dL (0-150); VLDL Cholestrol Calculation 14 mg/dL (0-30)
[2023-07-24] MEDS: piperacillin-tazobactam 3.375 GM in sodium chloride 0.9% (plus) 50 ML IV ×3 (06:20→23:02)
[2023-07-24] MEDS: dextrose 5% 1,000 ML 75 ML IV (11:21)
[2023-07-24] MEDS: heparin 5,000 unit/mL INJ 1 mL 5000 UNIT SUBCUT ×2 (11:22→21:22)
--- NOTE | 2023-07-24 14:06 | P.PN_ITS ---
Subjective 2 Subjective: No acute events overnight. Again seen with multiple family members at bedside. Patient remains at her baseline mentation of mild confusion. No episodes of diarrhea. Patient tolerating liquid diet well with 1 episode of vomiting yesterday evening. Otherwise has remained hemodynamically stable and afebrile. Vitals/I&O/Wt Last Vital Signs Temp 97.7 F 07/24/23 11:46 Pulse 84 07/24/23 11:46 Resp 16 07/24/23 11:46 BP 145/75 07/24/23 11:46 Pulse Ox 95 07/24/23 11:46 O2 Del Method Room Air 07/24/23 10:00 O2 Flow Rate 1.5 07/23/23 19:47 07/23/23 07/24/23 07/24/23 22:59 06:59 14:59 Intake Total 345 / 1450 50 / 1500 700 / 700 Balance 345 / 1450 50 / 1500 700 / 700 Weight last 48 hrs Weight 69.536 kg Weight 69.144 kg Weight 66.587 kg Weight 68.039 kg Physical Exam 2 Narrative: General: AO x 1-2, Not dehydrated today, hard of hearing HEENT: PERRLA, pupils bilaterally equal and reactive, pallors not present Chest: Normal vesicular breath sounds, no added sounds, equal good air entry bilaterally CVS: S1-S2 regular, no murmurs, no tachycardia, no gallops, no rubs Abdomen: Soft, tender to palpation over lower abdomen, below the umbilicus , no organomegaly, bowel sounds present Neuro: No focal deficits, no facial deformity, power 5/5 in all limbs Data 07/24/23 04:31 07/24/23 04:31 A&P Assessment and plan (1) Colitis: (2) Hypokalemia: (3) Thrombocytopenia: (4) Leukocytosis: (5) Dementia: Plan 83-year-old lady presenting with 2-3 days of abdominal pain and multiple episodes of vomiting today. Colitis: Appreciate CT abdomen pelvis results. Concerning for infectious versus inflammatory process. Continue with IV hydration. Switch fluids to D5W at 75 cc/h given hypernatremia. Stool studies awaited, blood cultures so far negative, ESR normal, Pro-Zachary mildly elevated, CRP mildly elevated. Continue with IV Zosyn for now. Elevated lactate: Continues to remain at 4. Unknown etiology. No concerns for ischemic colitis for now. CT abdomen pelvis with IV contrast from admission appreciated. Could be in setting of malignancy. Otherwise patient is hemodynamically stable, awake at her baseline mentation. Continue with IV fluids as above Thrombocytopenia/leukocytosis: Thrombocytopenia seems to be new. On review from past platelet counts were normal. Patient does have history of chronic neutropenia with concerns for MDS though patient in the past declined bone marrow continues to follow-up with Dr. Fields in oncology office in 2017. Mild improvement in leukocytosis today. Platelet count is also trending down today though. Given extreme leukocytosis with predominant neutrophils, 11% band and 1% atypical lymphocytes for now we will check peripheral smear, flow cytometry, LDH as there is a possibility of MDS conversion to AML. Checking stool studies for C. difficile as above. Monitor daily for now. Hemoglobin stable. Hypokalemia: Resolved. Hypernatremia: Sodium level up to 147 today. Most likely in setting of poor oral intake. Switch fluid to D5W as above. Discussed in detail with family and patient about increased oral intake. Repeat BMP in evening. CODE STATUS: Discussed in detail with patient and at bedside. will the DPOA. Patient does not want any heroic measures including chest compressions or life support. CODE STATUS DNR/DNI. Advance diet to clear liquid diet. Protonix OPD prophylaxis SCDs for DVT prophylaxis along with heparin 5000 every 12 hourly. Monitor platelet counts. Attestations 2 Medical Necessity Statement*: Requires further hospitalization for management of colitis, significant leukocytosis and thrombocytopenia while workup for AML is sent out, hypernatremia. Diagnoses Colitis K52.9 Hypokalemia E87.6 Thrombocytopenia D69.6 Leukocytosis D72.829 Dementia F03.90
[2023-07-24 15:06] LABS: Anion Gap 14.6 (5-19); Blood Urea Nitrogen 16 mg/dL (8-23); Calcium 9.3 mg/dL (8.5-10.5); Carbon Dioxide 20 mmol/L (22-29); Chloride 109 mmol/L (98-107); Glucose 104 mg/dL (65-115); Osmolality Calculated 291 mOsm/kg (285-295); Potassium 3.6 mmol/L (3.5-5.1); Sodium 140 mmol/L (136-145)
[2023-07-24] MEDS: folic acid 1 mg Tablet PO (17:03)
[2023-07-24] MEDS: ondansetron 2 mg/ML SDV 2 mL 4 MG IVP (17:03)
[2023-07-25] VITALS (7 sets, daily range): BP systolic 117–149; BP diastolic 70–79; PULSE 81–90; RESP 16–18; TEMP 36.5–37.3; O2SAT 95–100; BMI 29.9
[2023-07-25] MEDS: dextrose 5% 1,000 ML 75 ML IV ×2 (00:37→16:12)
[2023-07-25 05:31] LABS: Basophils % 0.1 %; Eosinophils % 0.1 %; Lymphocytes # 1.2 10^3/uL (0.8-4.8); Lymphocytes % 9.2 %; Mean Corpuscular HGB Conc 32.5 g/dL (30-55); Mean Corpuscular Hemoglobin 28.3 pg (27-33); Mean Corpuscular Volume 87.2 fl (85-98); Monocytes # 0.9 10^3/uL (0.2-0.9); Monocytes % 6.5 %; Neutrophils % 83.3 %; Nucleated Red Blood Cells % 0 %; Platelet Count 52 10^3/cmm (157-399); Red Blood Count 3.21 10^6/uL (3.85-5.65); Red Cell Distribution Width 15.8 % (12.1-15.1); White Blood Count 13.32 10^3/uL (3.29-11.43)
[2023-07-25 05:49] LABS: Alanine Aminotransferase 12 U/L (0-33); Albumin Level 3.1 g/dL (3.5-5.2); Alkaline Phosphatase 70 U/L (35-105); Anion Gap 11.1 (5-19); Aspartate Amino Transferase 31 U/L (0-32); Blood Urea Nitrogen 10 mg/dL (8-23); Calcium 8.4 mg/dL (8.5-10.5); Carbon Dioxide 21 mmol/L (22-29); Chloride 107 mmol/L (98-107); Globulin 3.3 g/dL (1.3-4.6); Glucose 118 mg/dL (65-115); Osmolality Calculated 282 mOsm/kg (285-295); Potassium 3.1 mmol/L (3.5-5.1); Sodium 136 mmol/L (136-145); Total Bilirubin 1.4 mg/dL (0.15-1.2); Total Protein 6.4 g/dL (6.6-8.7)
[2023-07-25 05:53] LABS: Magnesium 1.8 mg/dL (1.7-2.3)
[2023-07-25] MEDS: piperacillin-tazobactam 3.375 GM in sodium chloride 0.9% (plus) 50 ML IV ×3 (06:35→22:32)
[2023-07-25] MEDS: heparin 5,000 unit/mL INJ 1 mL 5000 UNIT SUBCUT ×2 (08:48→20:57)
[2023-07-25] MEDS: folic acid 1 mg Tablet PO ×2 (08:48→17:56)
[2023-07-25] MEDS: acetaminophen 325 mg Tablet 650 MG PO (08:56)
--- NOTE | 2023-07-25 11:04 | XRR_ITS ---
PROCEDURE INFORMATION: Exam: XR Chest Exam date and time: 07/25/2023 3:34 PM Age: 83 years old Clinical indication: Dyspnea and tachypnea; Patient HX: Dyspnea; Tachypnea TECHNIQUE: Imaging protocol: Radiologic exam of the chest. Views: 1 view. COMPARISON: CR (CHEST, ) 07/22/2023 8:36 PM FINDINGS: Lungs: No new focal consolidation. Similar bibasilar atelectasis and increased interstitial markings. Pleural spaces: No pleural effusion. No pneumothorax. Heart/Mediastinum: Heart size is unchanged. Bones/joints: No acute findings. XR/XR chest 1V portable [id number] IMPRESSION: No new/acute findings.
--- NOTE | 2023-07-25 21:17 | P.PN_ITS ---
Subjective 2 Subjective: Nursing reports patient has been more short of breath today. She was requiring more oxygen throughout the night. Nursing also reports that she has been having slightly elevated temperatures. Medications: Reviewed: Yes Vitals/I&O/Wt Last Vital Signs Temp 97.9 F 07/25/23 19:41 Pulse 81 07/25/23 19:41 Resp 16 07/25/23 19:41 BP 117/70 07/25/23 19:41 Pulse Ox 98 07/25/23 19:41 O2 Del Method Nasal Cannula 07/25/23 19:41 O2 Flow Rate 2 07/25/23 19:41 07/25/23 07/25/23 07/25/23 06:59 14:59 22:59 Intake Total 1075 / 3085 1290 / 1290 50 / 1340 Output Total 200 / 200 Balance 875 / 2885 1290 / 1290 50 / 1340 Weight last 48 hrs Weight 153 lb 4.8 oz Weight 153 lb 4.8 oz Physical Exam 2 Narrative: General: Cooperative patient in no apparent distress. Well developed. HEENT: Normocephalic, Atraumatic. External ears normal. Nasal passages patent without drainage. MMM. Heart: RRR. Resp: LCTA. No respiratory distress, no use of accessory muscles. Abd: Soft, non-tender. Non-distended. Extremities: No edema. Skin: No rash or lesions on exposed areas. Data 07/25/23 04:41 07/25/23 04:41 A&P Assessment and plan (1) Colitis: (2) Hypokalemia: (3) Thrombocytopenia: (4) Leukocytosis: (5) Dementia: Plan 83-year-old F admitted for colitis, leukocytosis, hypokalemia, thrombocytopenia, dementia. Colitis: Appreciate CT abdomen pelvis results. Concerning for infectious versus inflammatory process. Continue with IV hydration. Switch fluids to D5W at 75 cc/h given hypernatremia. Leukocytosis now improved to 13.32. She did have an elevation to 57 after admission. Continue Zosyn at this time. Potassium did decrease to 3.1. Will replace and recheck. Folate low on admission. Continue replacement. Stool studies awaited, blood cultures so far negative, ESR normal, Pro-Zachary mildly elevated, CRP was elevated to 294 on admission. Recheck lactate tomorrow. Given extreme leukocytosis with predominant neutrophils, 11% band and 1% atypical lymphocytes for now we will check peripheral smear, flow cytometry, LDH as there is a possibility of MDS conversion to AML. Continue home meds for other chronic medical. Code Status: Allow natural IVF: None DVT PPx: Heparin GI PPx: None ABx: Zosyn Diet: Clear liquid Discharge plan: TBD. Attestations 2 Medical Necessity Statement*: Requires further hospitalization for management of colitis, significant leukocytosis and thrombocytopenia while workup for AML is sent out, hypernatremia. Coding Level of Care Code Acute Code for Chg Fwd Moderate MDM includes number and complexity of problems actively addressed during encounter, amount and/or complexity of data reviewed/ordered and described risk of complication, morbidity or mortality of management as documented Diagnoses Colitis K52.9 Hypokalemia E87.6 Thrombocytopenia D69.6 Leukocytosis D72.829 Dementia F03.90
[2023-07-25] MEDS: potassium chloride ER 20 mEq Tablet 40 MEQ PO (22:32)
[2023-07-26] VITALS (7 sets, daily range): BP systolic 138–163; BP diastolic 75–92; PULSE 77–80; RESP 15–18; TEMP 36.4–37; O2SAT 97–98
[2023-07-26 04:50] LABS: Basophils % 0.2 %; Eosinophils % 0.4 %; Hematocrit 29.4 % (36-47); Lymphocytes # 0.9 10^3/uL (0.8-4.8); Lymphocytes % 18.8 %; Mean Corpuscular HGB Conc 32.3 g/dL (30-55); Mean Corpuscular Hemoglobin 29.2 pg (27-33); Mean Corpuscular Volume 90.5 fl (85-98); Monocytes # 0.4 10^3/uL (0.2-0.9); Monocytes % 9.2 %; Neutrophils # 3.38 10^3/uL (1.8-7.7); Neutrophils % 70.6 %; Nucleated Red Blood Cells % 0 %; Platelet Count 55 10^3/cmm (157-399); Red Blood Count 3.25 10^6/uL (3.85-5.65); Red Cell Distribution Width 15.6 % (12.1-15.1); White Blood Count 4.79 10^3/uL (3.29-11.43)
[2023-07-26 05:06] LABS: Alanine Aminotransferase 14 U/L (0-33); Albumin Level 3.2 g/dL (3.5-5.2); Alkaline Phosphatase 82 U/L (35-105); Blood Urea Nitrogen 6 mg/dL (8-23); C Reactive Protein 89.7 mg/L (0.0-4.9); Calcium 8.8 mg/dL (8.5-10.5); Carbon Dioxide 21 mmol/L (22-29); Chloride 107 mmol/L (98-107); Globulin 3.4 g/dL (1.3-4.6); Glucose 99 mg/dL (65-115); Magnesium 1.9 mg/dL (1.7-2.3); Osmolality Calculated 286 mOsm/kg (285-295); Sodium 139 mmol/L (136-145); Total Bilirubin 1.6 mg/dL (0.15-1.2); Total Protein 6.6 g/dL (6.6-8.7)
[2023-07-26 05:08] LABS: Aspartate Amino Transferase 32 U/L (0-32)
[2023-07-26] MEDS: dextrose 5% 1,000 ML 75 ML IV ×2 (06:28→16:05)
[2023-07-26] MEDS: piperacillin-tazobactam 3.375 GM in sodium chloride 0.9% (plus) 50 ML IV ×2 (06:29→15:28)
[2023-07-26 08:12] LABS: Folate Level 17.2 ng/mL (4.8-37.3)
[2023-07-26] MEDS: folic acid 1 mg Tablet PO ×2 (09:53→17:22)
[2023-07-26] MEDS: heparin 5,000 unit/mL INJ 1 mL 5000 UNIT SUBCUT ×2 (09:53→20:22)
--- NOTE | 2023-07-26 11:40 | PC.SOCIAL ---
Pg 2 IMM Explained to pt & Pg 2 IMM. No questions voiced. Provided pt a copy. Initialed, dated, & timed a copy & placed in chart.
--- NOTE | 2023-07-26 13:25 | P.PN_ITS ---
Subjective 2 Subjective: Seen this morning. Requiring 2 L nasal cannula oxygen. CRP elevated at 89. Had another bowel movement which was totally liquid. All stool studies are pending at this time. Patient is at baseline mental status. Requiring a sitter at this time. Vitals/I&O/Wt Last Vital Signs Temp 97.6 F 07/26/23 12:30 Pulse 77 07/26/23 12:30 Resp 18 07/26/23 12:30 BP 163/79 07/26/23 12:30 Pulse Ox 98 07/26/23 12:30 O2 Del Method Nasal Cannula 07/26/23 12:30 O2 Flow Rate 2 07/26/23 10:00 07/25/23 07/26/23 07/26/23 22:59 06:59 14:59 Intake Total 50 / 1340 1050 / 2390 410 / 410 Balance 50 / 1340 1050 / 2390 410 / 410 Weight last 48 hrs Weight 72.32 kg Weight 69.536 kg Physical Exam 2 Narrative: General: Cooperative patient in no apparent distress. Well developed. HEENT: Normocephalic, Atraumatic. Heart: RRR. Resp: LCTA. No respiratory distress, no use of accessory muscles. Abd: Soft, non-tender. Non-distended. Extremities: No edema. Data 07/26/23 04:29 07/26/23 04:29 A&P Assessment and plan (1) Colitis: (2) Hypokalemia: (3) Thrombocytopenia: (4) Leukocytosis: (5) Dementia: Plan 83-year-old F admitted for colitis, leukocytosis, hypokalemia, thrombocytopenia, dementia. Colitis: Appreciate CT abdomen pelvis results. Concerning for infectious versus inflammatory process. Continue with IV hydration. Stop D5 water. Leukocytosis resolved. She did have an elevation to 57 after admission. Continue Zosyn at this time. Potassium okay today. Folate low on admission. Continue replacement. Stool studies awaited, blood cultures so far negative, ESR normal, Pro-Zachary mildly elevated, CRP was elevated to 294 on admission. CRP down to 89.7. Recheck lactate tomorrow. Given extreme leukocytosis with predominant neutrophils, 11% band and 1% atypical lymphocytes for now we will check peripheral smear, flow cytometry, LDH as there is a possibility of MDS conversion to AML. Continue home meds for other chronic medical. On 2 L nasal cannula at this time. Will do home oxygen evaluation. Code Status: Allow natural IVF: None DVT PPx: Heparin GI PPx: None ABx: Zosyn Diet: Advance diet to GI soft. Discharge plan: If patient able to tolerate diet and diarrhea improves further may be we will be able to send her home with oral antibiotics ciprofloxacin and Flagyl at discharge. Attestations 2 Medical Necessity Statement*: Requires further hospitalization for management of colitis, significant leukocytosis and thrombocytopenia while workup for AML is sent out, hypernatremia. Diagnoses Colitis K52.9 Hypokalemia E87.6 Thrombocytopenia D69.6 Leukocytosis D72.829 Dementia F03.90
[2023-07-27] VITALS: BP 147/77; PULSE 73; RESP 18; TEMP 37; O2SAT 96
[2023-07-27] MEDS: piperacillin-tazobactam 3.375 GM in sodium chloride 0.9% (plus) 50 ML IV ×2 (01:41→08:44)
[2023-07-27 04:36] VITALS: BP 150/75; PULSE 74; RESP 16; TEMP 37.1; O2SAT 100
[2023-07-27] MEDS: dextrose 5% 1,000 ML 75 ML IV (05:21)
[2023-07-27 05:58] LABS: Basophils % 0.3 %; Eosinophils % 0.5 %; Hematocrit 31.1 % (36-47); Lymphocytes # 1.1 10^3/uL (0.8-4.8); Lymphocytes % 26.7 %; Mean Corpuscular HGB Conc 31.5 g/dL (30-55); Mean Corpuscular Hemoglobin 28.5 pg (27-33); Mean Corpuscular Volume 90.4 fl (85-98); Mean Platelet Volume 12.9 fL (7.4-10.4); Monocytes # 0.5 10^3/uL (0.2-0.9); Monocytes % 12.7 %; Neutrophils # 2.28 10^3/uL (1.8-7.7); Nucleated Red Blood Cells % 0 %; Platelet Count 103 10^3/cmm (157-399); Red Blood Count 3.44 10^6/uL (3.85-5.65); Red Cell Distribution Width 15.7 % (12.1-15.1); White Blood Count 3.93 10^3/uL (3.29-11.43)
[2023-07-27 06:17] LABS: Alanine Aminotransferase 18 U/L (0-33); Albumin Level 3.1 g/dL (3.5-5.2); Alkaline Phosphatase 94 U/L (35-105); Anion Gap 12.4 (5-19); Aspartate Amino Transferase 29 U/L (0-32); Blood Urea Nitrogen 5 mg/dL (8-23); Calcium 8.6 mg/dL (8.5-10.5); Carbon Dioxide 22 mmol/L (22-29); Chloride 109 mmol/L (98-107); Globulin 3.6 g/dL (1.3-4.6); Glucose 103 mg/dL (65-115); Osmolality Calculated 288 mOsm/kg (285-295); Potassium 3.4 mmol/L (3.5-5.1); Sodium 140 mmol/L (136-145); Total Bilirubin 1.3 mg/dL (0.15-1.2); Total Protein 6.7 g/dL (6.6-8.7)
[2023-07-27 06:35] LABS: Slide Review Slide Review Perform
[2023-07-27 07:26] VITALS: PULSE 68; RESP 16; O2SAT 99
[2023-07-27 08:09] VITALS: BP 116/69; PULSE 69; RESP 17; TEMP 36.4; O2SAT 97
[2023-07-27] MEDS: folic acid 1 mg Tablet PO (08:43)
[2023-07-27] MEDS: heparin 5,000 unit/mL INJ 1 mL 5000 UNIT SUBCUT (08:43)
[2023-07-27] MEDS: lanolin oint 7 gm 1 APPLIC TOPICAL (08:56)
[2023-07-27 10:59] VITALS: BP 117/63; PULSE 76; RESP 18; TEMP 36.5; O2SAT 96
[2023-07-27] MEDS: potassium chloride ER 20 mEq Tablet 40 MEQ PO (12:11)
[2023-07-27 12:56] VITALS: BP 117/63; PULSE 76; RESP 18; TEMP 36.5; O2SAT 96
--- NOTE | 2023-07-27 19:26 | PM.DCS ---
Discharge Providers Date of Admission: 07/22/23 21:26 Date of Discharge: July 26, 2023 Attending Provider at Admission: Que Mercado MD Attending Provider at Discharge: Vilma Marie MD Primary Care Provider: Dave Gross DO Diagnoses at Discharge Discharge Diagnosis (1) Colitis: Status: Acute (2) Hypokalemia: Status: Acute (3) Thrombocytopenia: Status: Acute (4) Leukocytosis: Status: Acute (5) Dementia: Status: Acute Reason for Visit Reason for Visit: lower abd pain Brief History: Reji Sage is a 83 year old female who presents to the emergency room today complaining of 3 to 4 days of abdominal pain. History is pretty vague patient is unable to specify to me any details., she is very hard of hearing which makes conversation difficult. She states that she started developing abdominal pain localized mainly in the lower abdomen 3 to 4 days ago. She is unable to tell me if there have been any exacerbating or relieving factors. She reports normal bowel movements. States that her last bowel movement was yesterday. She did not notice any blood. She has had no diarrhea. She has had 2-3 episodes of vomiting since presenting into the emergency room today. He is only taking Tylenol at home. She has not noted any fever. She tells me that she does not have any other known comorbidities. Review of her past records dating back to 2017 shows that she has a history of longstanding neutropenia and thrombocytopenia which was thought to be either related to EMILY inhibitors versus myelodysplastic syndrome. She had declined a bone marrow evaluation today. Records also show that she has a history of positive KRISTIN titer 1: 80 and HTN. Hospital Course Hospital Course Patient admitted for colitis leukocytosis hypokalemia thrombocytopenia and dementia. CT abdomen pelvis results showed concerning for infectious versus inflammatory process. She was given IV hydration during hospital stay. Leukocytosis improved with antibiotics to normal. 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 Discussed with family. Patient is to follow-up with Dr. Shah as an outpatient. Her diarrhea has resolved. She only had 1 BM in the last 24 hours. Stool studies are still pending. Patient will be sent home on 4 more days of ciprofloxacin and Flagyl at time of discharge. She is tolerating a GI soft diet as well. Patient to follow-up with primary care doctor. Discussed all of the above with patient's family and they are on board with the plan. Patient is back to baseline mental status. Potassium will be repleted prior to DC. Physical Exam Narrative: General: Cooperative patient in no apparent distress. Well developed. HEENT: Normocephalic, Atraumatic. Heart: RRR. Resp: LCTA. No respiratory distress, no use of accessory muscles. Abd: Soft, non-tender. Non-distended. Extremities: No edema. Discharge Data Studies Completed and Pending Completed Studies During Hospitalization Category Date Time Status CT abdomen pelvis w con* [id number] Stat Cat Scan 07/22/23 18:48 Completed CXRP [XR chest 1V portable [id number]] Routine Exams 07/25/23 11:04 Completed CXRP [XR chest 1V portable [id number]] Stat Exams 07/22/23 20:25 Completed Pending at discharge Category Date Time Status Bacterial Antigen Stat Lab 07/23/23 09:36 Ordered Blood Cultures ([facility]) Routine Lab 07/23/23 06:30 Results Blood Cultures ([facility]) Routine Lab 07/23/23 06:36 Results Clostridium Difficile PCR Routine Lab 07/23/23 07:48 Ordered Immunochemical Fecal OCB Routine Lab 07/23/23 07:48 Ordered Lactoferrin Routine Lab 07/23/23 07:48 Ordered OVA and Parasites, Conc and PE Routine Lab 07/23/23 07:48 Ordered Salmonella / Shigella / Campy Routine Lab 07/23/23 07:48 Ordered Radiology Impressions Abdomen/Pelvis CT 07/22/23 18:48 IMPRESSION: Short segment of circumferential bowel wall thickening in the proximal transverse colon with no diverticula. Findings can be seen the setting inflammatory or infectious colitis. The appendix is not visualized but there are no secondary signs of acute appendicitis. Chest X-Ray 07/25/23 11:04 IMPRESSION: No new/acute findings. Laboratory Results WBC 4.79 10^3/uL (3.29-11.43) 07/26/23 04:29 Corrected WBC Cancelled 07/23/23 06:30 RBC 3.25 10^6/uL (3.85-5.65) L 07/26/23 04:29 Hgb 9.50 g/dL (11.27-16.99) L 07/26/23 04:29 Hct 29.4 % (36-47) L 07/26/23 04:29 MCV 90.5 fl (85-98) 07/26/23 04:29 MCH 29.2 pg (27-33) 07/26/23 04: MCHC 32.3 g/dL (30-55) 07/26/23 04:29 RDW 15.6 % (12.1-15.1) H 07/26/23 04:29 Plt Count 55 10^3/cmm (157-399) L 07/26/23 04:29 MPV Not Reportable 07/26/23 04:29 Gran % Cancelled 07/23/23 06:30 Neut % (Auto) 70.6 % 07/26/23 04:29 Lymph % (Auto) 18.8 % 07/26/23 04:29 [place] % (Auto) 9.2 % 07/26/23 04:29 Eos % (Auto) 0.4 % 07/26/23 04:29 Baso % (Auto) 0.2 % 07/26/23 04:29 Neut # (Auto) 3.38 10^3/uL (1.8-7.7) 07/26/23 04:29 Lymph # (Auto) 0.9 10^3/uL (0.8-4.8) 07/26/23 04:29 [place] # (Auto) 0.4 10^3/uL (0.2-0.9) 07/26/23 04:29 Eos # (Auto) 0.0 10^3/uL (0.0-0.8) 07/26/23 04:29 Baso # (Auto) 0.0 10^3/uL (0.0-0.1) 07/26/23 04:29 Absolute Gran (auto) Cancelled 07/23/23 06:30 Nucleated RBC % (auto) 0 % 07/26/23 04:29 Total Counted 100 (0-100) 07/23/23 09:34 Atypical Lymphs % 1.0 % (0-5) 07/23/23 09:34 Absolute Neutrophils 41.5 10^3/cmm (1.4-6.5) H 07/23/23 09:34 Segmented Neutrophils 53 % 07/23/23 09:34 Abs Segm Neuts (Man) 30.6 10/cmm (1.6-7.1) H 07/23/23 09:34 Band Neutrophils 19.0 % 07/23/23 09:34 Abs Band Neuts (Man) 11.0 10^3/cmm (0.0-1.2) H 07/23/23 09:34 Absolute Lymphocytes 2.9 10^3/cmm (1.2-3.4) 07/23/23 09:34 Lymphocytes (Manual) 4 % 07/23/23 09:34 Monocytes (Manual) 11.0 % 07/23/23 09:34 Absolute Monocytes 6.3 10^3/cmm (0.1-0.6) H 07/23/23 09:34 Eosinophils (Manual) 0 % 07/23/23 09:34 Absolute Eosinophils 0.0 10^3/cmm (0.0-0.7) 07/23/23 09:34 Basophils (Manual) 0.0 % 07/23/23 09:34 Absolute Basophils 0.0 10^3/cmm (0.0-0.2) 07/23/23 09:34 Metamyelocytes 12.0 % 07/23/23 09:34 Nucleated RBCs # 0.0 /100WBC 07/26/23 04:29 Platelet Estimate Decreased (Normal) L 07/23/23 09:34 Peripher Smr Path Cons Sent for review 07/23/23 09:34 ESR 8 mm/hr (0-15) 07/23/23 09:34 Sodium 139 mmol/L (136-145) 07/26/23 04:29 Potassium 4.0 mmol/L (3.5-5.1) 07/26/23 04:29 Chloride 107 mmol/L (98-107) 07/26/23 04:29 Carbon Dioxide 21 mmol/L (22-29) L 07/26/23 04:29 Anion Gap 15.0 (5-19) 07/26/23 04:29 BUN 6 mg/dL (8-23) L 07/26/23 04:29 Creatinine 0.7 mg/dL (0.5-0.9) 07/26/23 04:29 GFR Calculation Not Reportable 07/26/23 04:29 Glucose 99 mg/dL (65-115) 07/26/23 04:29 Estimat Average Glucose 105 07/24/23 04:31 Hemoglobin A1c 5.3 % (4.0-6.0) 07/24/23 04:31 Calculated Osmolality 286 mOsm/kg (285-295) 07/26/23 04:29 Lactic Acid 4.1 mmol/L (0.5-2.2) H* 07/23/23 16:40 Lactic Acid (Sepsis) 4.5 mmol/L (0.5-2.2) H* 07/23/23 19:54 Lactate 1.0 mmol/L (0.5-2.2) 07/25/23 22:30 Calcium 8.8 mg/dL (8.5-10.5) 07/26/23 04:29 Magnesium 1.9 mg/dL (1.7-2.3) 07/26/23 04:29 Iron 26 ug/dL (37-145) L 07/23/23 09:34 TIBC 172 mcg/dl 07/23/23 09:34 % Saturation 15.1 % (20-50) L 07/23/23 09:34 Unsat Iron Binding 146 ug/dL (112-347) 07/23/23 09:34 Total Bilirubin 1.6 mg/dL (0.15-1.2) H 07/26/23 04:29 AST 32 U/L (0-32) 07/26/23 04:29 ALT 14 U/L (0-33) 07/26/23 04:29 Alkaline Phosphatase 82 U/L (35-105) 07/26/23 04:29 Lactate Dehydrogenase 321 U/L (135-214) H 07/23/23 06:30 C-Reactive Protein 89.7 mg/L (0.0-4.9) H 07/26/23 04:29 Total Protein 6.6 g/dL (6.6-8.7) 07/26/23 04:29 Albumin 3.2 g/dL (3.5-5.2) L 07/26/23 04:29 Globulin 3.4 g/dL (1.3-4.6) 07/26/23 04:29 Triglycerides 68 mg/dL (0-150) 07/24/23 04:31 Cholesterol 80 mg/dL (0-200) 07/24/23 04:31 LDL Cholesterol, Calc 33 mg/dL (50-129) L 07/24/23 04:31 Total VLDL Cholesterol 14 mg/dL (0-30) 07/24/23 04:31 HDL Cholesterol 33 mg/dL (60-100) L 07/24/23 04:31 Cholesterol/HDL Ratio 2.42 mg/dL (0.0-4.40) 07/24/23 04:31 Lipase 16 U/L (13-60) 07/22/23 18:44 Vitamin B12 1193 pg/mL (232-1245) 07/23/23 09:34 Folate 17.2 ng/mL (4.8-37.3) 07/26/23 04:29 Procalcitonin 1.52 ng/mL (0-0.5) H 07/23/23 09:34 TSH 1.10 uIU/mL (0.27-4.20) 07/23/23 09:34 Urine Color Yellow (Yellow) 07/22/23 19:44 Urine Appearance Clear (CLEAR) 07/22/23 19:44 Urine pH 6.5 (5-7) 07/22/23 19:44 Ur Specific [place] 1.010 (1.005-1.030) 07/22/23 19:44 Urine Protein Neg (Negative) 07/22/23 19:44 Urine Glucose (UA) Norm (Normal) 07/22/23 19:44 Urine Ketones 1+ (Negative) H 07/22/23 19:44 Urine Blood Neg (Negative) 07/22/23 19:44 Urine Nitrate Negative (Negative) 07/22/23 19:44 Urine Bilirubin Neg (Negative) 07/22/23 19:44 Urine Urobilinogen Neg mg/dL (Negative) 07/22/23 19:44 Ur Leukocyte Esterase Trace (Negative) H 07/22/23 19:44 Urine RBC None /hpf (0-2) 07/22/23 19:44 Urine WBC 0-4 /hpf (0-5) H 07/22/23 19:44 Ur Squamous Epith Cells 0-4 /hpf (0-5) H 07/22/23 19:44 Ur Transition Epith Cell 0-4 /hpf 07/22/23 19:44 Amorphous Sediment Not Reportable 07/22/23 19:44 Urine Bacteria Trace /hpf (NONE) 07/22/23 19:44 Urine Mucus 1+ /hpf 07/22/23 19:44 Influenza Type A Ag negative (Negative) 07/22/23 22:26 Influenza Type B Ag negative (Negative) 07/22/23 22:26 SARS-CoV-2 Ag (Rapid) negative (Negative) 07/22/23 22:26 Vitals Last Vital Signs Temp 97.5 F L 07/26/23 08:29 Pulse 78 07/26/23 10:00 Resp 18 07/26/23 10:00 BP 150/78 07/26/23 08:29 Pulse Ox 98 07/26/23 10:00 O2 Del Method Nasal Cannula 07/26/23 10:00 O2 Flow Rate 2 07/26/23 10:00 Discharge Plan Discharge Patient Disposition: Home Condition: Stable Prescriptions: New metronidazole 500 mg tablet 500 mg PO BID 4 Days Qty: 8 0RF folic acid 1 mg Tablet 1 mg PO DAILY Qty: 30 0RF ciprofloxacin HCl 500 mg tablet 500 mg PO BID 4 Days Qty: 8 0RF Continued amlodipine 5 mg tablet 5 mg PO DAILY Discharge Orders: Discharge Order (Routine); Ordered 07/27/23 Ordered By: Vilma Marie Referrals: Dave Gross DO [Primary Care Provider] - 4-7 days Hector Shah MD [Hospitalist] - 1 week Discharge Diet: GI Soft Discharge Activity: Resume usual activity Patient Instructions: Opioid Safety Discharge Attestations Time Spent in Discharge Care*: greater than 30 min Quality Metrics Clinical Quality Measures [ No reported AMI, CVA or VTE this stay] Coding Level of Care Code 73339 Total time (in minutes) for Discharge: 45 Diagnoses Colitis K52.9 Hypokalemia E87.6 Thrombocytopenia D69.6 Leukocytosis D72.829 Dementia F03.90
[2023-07-28 07:17] LABS: Leukemia Profile (BBPL) See Report
== END 2023-07-27 12:57 | disposition home or self-care (01) | DRG 641 ==
LOC: ER 20:47 → MEDSURG 21:26
PROVIDERS: Family Medicine; Student in an Organized Health Care Education/Training Program; Admitting Provider Student in an Organized Health Care Education/Training Program; Emergency Provider Emergency Medicine; PCP Electrodiagnostic Medicine; Visit Provider Internal Medicine
DX: E87.6 Hypokalemia (principal); K52.9 Noninfective gastroenteritis and colitis, unspecified; E87.0 Hyperosmolality and hypernatremia; E86.0 Dehydration; Z66 Do not resuscitate; D70.8 Other neutropenia; F03.90 Unspecified dementia, unspecified severity, without behavioral disturbance, psychotic disturbance, mood disturbance, and anxiety; D69.6 Thrombocytopenia, unspecified; I10 Essential (primary) hypertension; H91.90 Unspecified hearing loss, unspecified ear
CPT/HCPCS: 36415; 71045; 74177; 80048; 80053; 80061; 81001; 82607; 82746; 83036; 83540; 83550; 83605; 83615; 83690; 83735; 84132; 84145; 84443; 85007; 85025; 85651; 86140; 87040; 87426; 87804; 88184; 88185; 93005; 96365; 96367; 96372; 96375; 99285; J0744; J1644; J2270; J2405; J2543; J3480; J3490; J7030; J7042; J7070; Q9967

== ENCOUNTER 2023-12-13 17:16 | Emergency (ER) | payer MEDICARE, SELFPAY ==
[2023-12-13 17:26] VITALS: BP 149/67; PULSE 67; RESP 18; TEMP 36.8; O2SAT 95
--- NOTE | 2023-12-13 17:43 | CTR_ITS ---
PROCEDURE INFORMATION: Exam: CT Head Without Contrast Exam date and time: 12/13/2023 5:51 PM Age: 83 years old Clinical indication: Injury or trauma; Blunt trauma (contusions or hematomas); Patient HX: Fall x2 - patient has small knot on back of head left side TECHNIQUE: Imaging protocol: Computed tomography of the head without contrast. Radiation optimization: All CT scans at this facility use at least one of these dose optimization techniques: automated exposure control; mA and/or kV adjustment per patient size (includes targeted exams where dose is matched to clinical indication); or iterative reconstruction. COMPARISON: No relevant prior studies available. RADIATION DOSE METRICS: Total DLP (mGy-cm): 952 FINDINGS: Brain: There is mild cerebral atrophy. There are mild deep white matter microangiopathic ischemic changes. No acute hemorrhage is identified. No mass or mass effect is identified. Cerebral ventricles: The ventricles are prominent secondary to atrophy. Paranasal sinuses: Mild right ethmoidal mucosal disease. Visualized paranasal sinuses are otherwise clear. Mastoid air cells: The mastoid air cells are clear. Bones: No acute osseous abnormalities are seen. Soft tissues: Small left posterior scalp hematoma or scar. CT/CT head wo con* [id number] IMPRESSION: 1. No acute intracranial pathology. 2. Senescent changes.
--- NOTE | 2023-12-13 17:43 | XRR_ITS ---
PROCEDURE INFORMATION: Exam: XR Chest Exam date and time: 12/13/2023 5:48 PM Age: 83 years old Clinical indication: Other: Weakness; Additional info: Fall TECHNIQUE: Imaging protocol: Radiologic exam of the chest. Views: 1 view. COMPARISON: CR XR chest 1V portable [id number] 07/25/2023 3:34 PM FINDINGS: Lungs: Low lung volumes with basilar compressive changes. No definitive consolidation. Pleural spaces: No pleural effusion or pneumothorax. Heart/Mediastinum: Heart size is within normal limits. Mitral annular calcifications are identified. Vasculature: Atherosclerotic calcifications of the aorta are noted. Bones/joints: No acute osseous abnormalities are seen. XR/XR chest 1V portable [id number] IMPRESSION: No acute cardiopulmonary disease.
--- NOTE | 2023-12-13 17:48 | XRR_ITS ---
PROCEDURE INFORMATION: Exam: XR Pelvis Exam date and time: 12/13/2023 5:53 PM Age: 83 years old Clinical indication: Injury or trauma; Fall; Blunt trauma (contusions or hematomas); Bilateral; Pelvic region TECHNIQUE: Imaging protocol: Radiologic exam of the pelvis. Views: 1 or 2 view. COMPARISON: CT abdomen pelvis w con* [id number] 07/22/2023 8:06 PM FINDINGS: Bones/joints: Mild osseous demineralization. Normal alignment. No evidence of acute fracture or dislocation. Mild foreshortening of the right femoral neck appears to be related to patient positioning. Mild degenerative changes of the femoroacetabular joints. Soft tissues: The soft tissues are within normal limits. XR/XR pelvis 1-2V* [id number] IMPRESSION: 1. No definitive evidence of acute fracture or dislocation. 2. Subtle foreshortening of the right femoral neck appears to be related to patient positioning. CT can be obtained if there is high clinical suspicion for right femoral neck fracture.
--- NOTE | 2023-12-13 17:49 | ED_ITS ---
HPI - Fall 2 General: Chief Complaint: Fall Stated Complaint: generalized weakness Time Seen by Provider: 12/13/23 17:18 Source: patient, family and EMS Mode of arrival: EMS History of Present Illness: 83-year-old female has a history of wallace ntia she is here from home family states she has been having frequent falls he states actually been going on for months but had multiple falls today. Patient lives with her he states when she falls he is not able to get her back up she has had some confusion as well but per family that is her norm with her dementia she is able to tell me her name she does not know the year but she is at her baseline per family she denies any pain anywhere. Associated symptoms-after fall: Denies abdominal pain, chest pain, headache(s) or neck pain Review of Systems 2 Const: Reports: fatigue and malaise; Denies: fever(s), chills, body aches or change in appetite Eyes: Denies: blurry vision or eye discomfort ENMT: Denies: throat pain or dental pain Card: Denies: chest pain Resp: Denies: dyspnea GI: Denies: abdominal pain, nausea, vomiting or diarrhea Musc: Denies: neck pain or back pain Skin/Breast: Denies: rash Neuro: Reports: weakness in extremities; Denies: headache(s) PFSH ED 2 PFSH: Medical History Dementia Melanoma Hypertension Positive KRISTIN (antinuclear antibody) 1: 80 Neutropenia Surgical History (Updated 07/23/23 @ 02:14 by Kelley Simms MD) H/O: hysterectomy Family History Other Alzheimer's dementia Cancer Social History Smoking and tobacco/nicotine status: never used tobacco/nicotine Alcohol intake: never Physical Exam 2 Const: COMMON NORMALS: alert EXAM LIMITATIONS: altered mental status O RIENTATION/CONSCIOUSNESS: Yes oriented to person; not oriented to place and not oriented to time HENMT: COMMON NORMALS: normocephalic and atraumatic HEAD & SCALP: n ormocephalic and atraumatic Eye: COMMON NORMALS: Equal, round and reactive pupils present and EOMs intact bilaterally PUPIL: Yes Equal, round and reactive pupils present Neck/C-Spine: COMMON NORMALS: full ROM and supple Chest: COMMONS NORMALS: normal inspection of the chest and normal palpation of entire chest wall Resp: COMMON NORMALS: normal respiratory effort, No retractions, No use of accessory muscles and clear to auscultation bilaterally AUSCULTATION: clear to auscultation bilaterally Cardio: COMMON NORMALS: regular rate, regular rhythm and No murmurs present (Cardio) RATE: regular rate RHYTHM: regular rhythm GI: COMMON NORMALS: Normal to inspection, nondistended, normoactive bowel sounds present, Soft to palpation, non-tender and no masses PALPATION: Yes Soft to palpation Extremity: COMMON NORMALS: normal to inspection and full ROM Neuro: COMMON NORMALS: moves all extremities and no focal motor deficits S ENSORIUM/ORIENTATION: Yes alert, Yes oriented to person, No oriented to place and No oriented to time Psych: COMMON NORMALS: Normal thought process present and cooperative T HOUGHT PROCESS: Normal thought process present Skin: COMMON NORMALS: no rashes or lesions noted and no wounds GENERAL SKIN EXAM: no rashes or lesions noted Course 2 Vital Signs: Vital signs: Vital Signs Temperature 98.3 F 12/13/23 17:26 Pulse Rate 67 12/13/23 17:26 Respiratory Rate 18 12/13/23 17:26 Blood Pressure 149/67 12/13/23 17:26 Pulse Oximetry 95 12/13/23 17:26 Oxygen Delivery Me thod Room Air 12/13/23 17:26 MDM - Fall Medical Decision Making Patient presents here with frequent falls with some generalized weakness she is well-appearing here imaging blood works all normal she is ambulatory here feels much improved like to go home she is stable for discharge she is follow-up with PCP return if worsening. Medical Records I reviewed the patient's medical records. Lab Data I reviewed the patient's lab results. 12/13/23 19:20 12/13/23 19:20 Radiology Impressions Chest X-Ray 12/13/23 17:43 IMPRESSION: No acute cardiopulmonary disease. Head CT 12/13/23 17:43 IMPRESSION: 1. No acute intracranial pathology. 2. Senescent changes. Pelvis X-Ray 12/13/23 17:48 IMPRESSION: 1. No definitive evidence of acute fracture or dislocation. 2. Subtle foreshortening of the right femoral neck appears to be related to patient positioning. CT can be obtained if there is high clinical suspicion for right femoral neck fracture. Hip CT 12/13/23 18:31 IMPRESSION: No evidence of acute fracture or dislocation. Laboratory Results WBC 4.07 10^3/uL (3.29-11.43) 12/13/23 19:20 RBC 3.62 10^6/uL (3.85-5.65) L 12/13/23 19:20 Hgb 10.30 g/dL (11.27-16.99) L 12/13/23 19:20 Hct 32.6 % (36-47) L 12/13/23 19:20 MCV 90.1 fl (85-98) 12/13/23 19:20 MCH 28.5 pg (27-33) 12/13/23 19:20 MCHC 31.6 g/dL (30-55) 12/13/23 19:20 RDW 16.7 % (12.1-15.1) H 12/13/23 19:20 Plt Count 84 10^3/cmm (157-399) L 12/13/23 19:20 MPV 12.0 fL (7.4-10.4) H 12/13/23 19:20 Neut % (Auto) 28.3 % 12/13/23 19:20 Lymph % (Auto) 38.6 % 12/13/23 19:20 [place] % (Auto) 32.4 % 12/13/23 19:20 Eos % (Auto) 0.0 % 12/13/23 19:20 Baso % (Auto) 0.2 % 12/13/23 19:20 Neut # (Auto) 1.15 10^3/uL (1.8-7.7) L 12/13/23 19:20 Lymph # (Auto) 1.6 10^3/uL (0.8-4.8) 12/13/23 19:20 [place] # (Auto) 1.3 10^3/uL (0.2-0.9) H 12/13/23 19:20 Eos # (Auto) 0.0 10^3/uL (0.0-0.8) 12/13/23 19:20 Baso # (Auto) 0.0 10^3/uL (0.0-0.1) 12/13/23 19:20 Nucleated RBC % (auto) 0 % 12/13/23 19:20 Nucleated RBCs # 0.0 /100WBC 12/13/23 19:20 PT 13.60 SECONDS (12.1-14.9) 12/13/23 19:20 INR 1.01 (0.8-1.2) 12/13/23 19:20 Sodium 142 mmol/L (136-145) 12/13/23 19:20 Potassium 3.3 mmol/L (3.5-5.1) L 12/13/23 19:20 Chloride 106 mmol/L (98-107) 12/13/23 19:20 Carbon Dioxide 25 mmol/L (22-29) 12/13/23 19:20 Anion Gap 14.3 (5-19) 12/13/23 19:20 BUN 15 mg/dL (8-23) 12/13/23 19:20 Creatinine 0.9 mg/dL (0.5-0.9) 12/13/23 19:20 GFR Calculation Not Reportable 12/13/23 19:20 Glucose 105 mg/dL (65-115) 12/13/23 19:20 Calculated Osmolality 295 mOsm/kg (285-295) 12/13/23 19:20 Magnesium 2.2 mg/dL (1.7-2.3) 12/13/23 19:20 Total Bilirubin 0.8 mg/dL (0.15-1.2) 12/13/23 19:20 AST 20 U/L (0-32) 12/13/23 19:20 ALT 10 U/L (0-33) 12/13/23 19:20 Alkaline Phosphatase 85 U/L (35-105) 12/13/23 19:20 Ammonia 16 umol/L (11-51) 12/13/23 19:20 Troponin T Baseline 11 ng/L (0-10) H 12/13/23 19:20 Total Protein 7.7 g/dL (6.6-8.7) 12/13/23 19:20 Albumin 4.3 g/dL (3.5-5.2) 12/13/23 19:20 Globulin 3.4 g/dL (1.3-4.6) 06/03/24 19:20 Urine Color Yellow (Yellow) 12/13/23 20:00 Urine Appearance Slightly cloudy (CLEAR) 12/13/23 20:00 Urine pH 7 (5-7) 12/13/23 20:00 Ur Specific [place] 1.010 (1.005-1.030) 12/13/23 20:00 Urine Protein Neg (Negative) 12/13/23 20:00 Urine Glucose (UA) Norm (Normal) 12/13/23 20:00 Urine Ketones Negative (Negative) 12/13/23 20:00 Urine Blood Neg (Negative) 12/13/23 20:00 Urine Nitrate Negative (Negative) 12/13/23 20:00 Urine Bilirubin Neg (Negative) 12/13/23 20:00 Urine Urobilinogen Neg mg/dL (Negative) 12/13/23 20:00 Ur Leukocyte Esterase 1+ (Negative) H 12/13/23 20:00 Urine RBC 0-4 /hpf (0-2) H 12/13/23 20:00 Urine WBC 0-4 /hpf (0-5) H 12/13/23 20:00 Ur Squamous Epith Cells 15-25 /hpf (0-5) H 12/13/23 20:00 Ur Transition Epith Cell 0-4 /hpf 12/13/23 20:00 Amorphous Sediment Not Reportable 12/13/23 20:00 Urine Bacteria 2+ /hpf (NONE) H 12/13/23 20:00 Urine Mucus 2+ /hpf 12/13/23 20:00 All radiology interpretation(s) finalized by discharge Discharge Plan Discharge Patient Disposition: Home Clinical Impression: Dementia, Fall Condition: Stable Prescriptions: No Action amlodipine 5 mg tablet 5 mg PO DAILY folic acid 1 mg Tablet 1 mg PO DAILY Qty: 30 0RF Discharge Orders: Discharge ED (Routine); Ordered 12/13/23 Ordered By: Javier Reed Referrals: Dave Gross DO [Primary Care Provider] - 1-3 days Discharge Diet: Advance as tolerated Discharge Activity: Resume usual activity Patient Instructions: Fall Prevention for Older Adults (ED) Coding Level of Care Code ED Electro Tech for Joni Ribera
--- NOTE | 2023-12-13 18:31 | CTR_ITS ---
PROCEDURE INFORMATION: Exam: CT Right Lower Extremity Without Contrast, Hip Exam date and time: 12/13/2023 6:56 PM Age: 83 years old Clinical indication: Injury or trauma and abnormal findings; Fall; Abnormal imaging study; Pelvis; Blunt trauma; Hip; Right TECHNIQUE: Imaging protocol: CT of the right lower extremity without contrast was performed. Exam focused on the hip. Radiation optimization: All CT scans at this facility use at least one of these dose optimization techniques: automated exposure control; mA and/or kV adjustment per patient size (includes targeted exams where dose is matched to clinical indication); or iterative reconstruction. COMPARISON: CT abdomen pelvis w con* [id number] 07/22/2023 8:06 PM RADIATION DOSE METRICS: Total DLP (mGy-cm): 321 FINDINGS: Bones/joints: Osseous demineralization. Normal alignment. No evidence of acute fracture or dislocation. Soft tissues: The soft tissues are within normal limits. Evidence of prior right inguinal hernia repair. Vasculature: Peripheral atherosclerotic vascular disease. CT/CT hip RT wo con* [id number] IMPRESSION: No evidence of acute fracture or dislocation.
[2023-12-13] MEDS: sodium chloride 0.9% 500 ML IV (18:36)
[2023-12-13 19:01] VITALS: RESP 16; O2SAT 96
[2023-12-13 19:29] LABS: Basophils % 0.2 %; Hematocrit 32.6 % (36-47); Lymphocytes # 1.6 10^3/uL (0.8-4.8); Lymphocytes % 38.6 %; Mean Corpuscular HGB Conc 31.6 g/dL (30-55); Mean Corpuscular Hemoglobin 28.5 pg (27-33); Mean Corpuscular Volume 90.1 fl (85-98); Monocytes # 1.3 10^3/uL (0.2-0.9); Monocytes % 32.4 %; Neutrophils # 1.15 10^3/uL (1.8-7.7); Neutrophils % 28.3 %; Nucleated Red Blood Cells % 0 %; Platelet Count 84 10^3/cmm (157-399); Red Blood Count 3.62 10^6/uL (3.85-5.65); Red Cell Distribution Width 16.7 % (12.1-15.1); White Blood Count 4.07 10^3/uL (3.29-11.43)
[2023-12-13 19:31] VITALS: PULSE 60; RESP 16; O2SAT 98
--- NOTE | 2023-12-13 19:43 | ECG_ITS ---
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 Measurements Intervals [place] Rate: 60 P: 74 MT: 197 QRS: -5 QRSD: 98 T: 38 QT: 420 QTc: 420 Interpretive Statements SINUS RHYTHM SEPTAL MYOCARDIAL INFARCTION , PROBABLY OLD [40+ ms Q WAVE IN V1/V2] Compared to ECG 07/23/2023 03:44:53 Myocardial infarct finding now present Electronically Signed On 12-14-2023 7:30:29 CDT by Yoseph Lópze M.D. [email or web address]
[2023-12-13 19:45] LABS: INR 1.01 (0.8-1.2)
[2023-12-13 19:48] LABS: Ammonia 16 umol/L (11-51)
[2023-12-13 19:49] LABS: Troponin(5th) Baseline 11 ng/L (0-10)
[2023-12-13 20:01] VITALS: PULSE 58; RESP 18; O2SAT 96
[2023-12-13 20:08] LABS: Alanine Aminotransferase 10 U/L (0-33); Albumin Level 4.3 g/dL (3.5-5.2); Alkaline Phosphatase 85 U/L (35-105); Anion Gap 14.3 (5-19); Aspartate Amino Transferase 20 U/L (0-32); Blood Urea Nitrogen 15 mg/dL (8-23); Carbon Dioxide 25 mmol/L (22-29); Chloride 106 mmol/L (98-107); Globulin 3.4 g/dL (1.3-4.6); Glucose 105 mg/dL (65-115); Magnesium 2.2 mg/dL (1.7-2.3); Osmolality Calculated 295 mOsm/kg (285-295); Potassium 3.3 mmol/L (3.5-5.1); Sodium 142 mmol/L (136-145); Total Bilirubin 0.8 mg/dL (0.15-1.2); Total Protein 7.7 g/dL (6.6-8.7)
[2023-12-13 20:18] LABS: Add Urine Microscopic? YES; Bilirubin Urine Neg (Negative); Blood Urine Neg (Negative); Glucose Urine UA Norm (Normal); Ketones Urine Negative (Negative); Leukocyte Esterase Urine 1+ (Negative); Nitrate Urine Negative (Negative); Protein Urine Neg (Negative); Urine Appearance Slightly Cloudy (CLEAR); Urine Color Yellow (Yellow); Urobilinogen Urine Neg (Negative); pH Urine 7 (5-7)
[2023-12-13 20:19] LABS: Add Urine Culture? No; Bacteria Urine 2+ /hpf; Mucus Urine 2+ /hpf; RBC Urine 0-4 /hpf (0-2); Squamous Epithelial Cell Urine 15-25 /hpf (0-5); Transitional Epi Cells Urine 0-4 /hpf; WBC Urine 0-4 /hpf (0-5)
[2023-12-13 20:39] VITALS: PULSE 65; RESP 16; O2SAT 96
[2023-12-13 20:39] LABS: Calcium 10.2 mg/dL (8.5-10.5)
== END 2023-12-13 20:41 | disposition home or self-care (01) ==
PROVIDERS: Emergency Provider Emergency Medicine; PCP Electrodiagnostic Medicine
DX: F03.90 Unspecified dementia, unspecified severity, without behavioral disturbance, psychotic disturbance, mood disturbance, and anxiety (principal); I10 Essential (primary) hypertension
CPT/HCPCS: 36415; 70450; 71045; 72170; 73700; 80053; 81001; 82140; 83735; 84484; 85025; 85610; 93005; 99285; J7040

== ENCOUNTER 2024-04-13 10:59 | Emergency (ER) | payer MEDICARE, SELFPAY ==
[2024-04-13 11:13] VITALS: BP 169/70; PULSE 70; RESP 17; TEMP 36.4; O2SAT 100
[2024-04-13 11:29] VITALS: BP 195/98; PULSE 66; RESP 18; O2SAT 98
[2024-04-13 11:48] VITALS: BP 155/79; PULSE 66; RESP 24; O2SAT 98
[2024-04-13 11:54] LABS: Eosinophils % 0.4 %; Hematocrit 29.7 % (36-47); Lymphocytes # 1.2 10^3/uL (0.8-4.8); Lymphocytes % 25.4 %; Mean Corpuscular HGB Conc 33.7 g/dL (30-55); Mean Corpuscular Hemoglobin 28.6 pg (27-33); Mean Corpuscular Volume 84.9 fl (85-98); Monocytes # 1.9 10^3/uL (0.2-0.9); Neutrophils # 1.51 10^3/uL (1.8-7.7); Neutrophils % 32.3 %; Nucleated Red Blood Cells % 0 %; Platelet Count 68 10^3/cmm (157-399); Red Cell Distribution Width 15.9 % (12.1-15.1); White Blood Count 4.68 10^3/uL (3.29-11.43)
--- NOTE | 2024-04-13 12:03 | W.ED.RECABL ---
HPI - Recheck/Abnormal Lab/Rx General: Chief Complaint: Recheck/Abnormal Lab/Rx Stated Complaint: sent from Dr. Shah low potassium Time Seen by Provider: 04/13/24 11:24 Source: patient Mode of arrival: ambulatory Limitations: no limitations History of Present Illness: 84-year-old female who states she has a history of low potassium states she had been out of her potassium pills and had a blood drawn today and was told her potassium was 2.6 and to come to the ER. Patient said some slight weakness she has no other complaints this time denies any vomiting or diarrhea. Related Data Home Medications Medication Instructions Recorded Confirmed amlodipine 5 mg tablet 5 mg PO DAILY 07/23/23 04/13/24 Allergies Allergy/AdvReac Type Severity Reaction Status Date / Time No Known Allergies Allergy Verified 07/22/23 18:46 Review of Systems Const: Denies: fever(s), chills, body aches or change in appetite Eyes: Denies: blurry vision or eye discomfort ENMT: Denies: throat pain or dental pain Card: Denies: chest pain Resp: Denies: dyspnea GI: Denies: abdominal pain, nausea, vomiting or diarrhea Musc: Denies: neck pain or back pain Skin/Breast: Denies: rash Neuro: Denies: headache(s) PFSH ED PFSH: Medical History Dementia Melanoma Hypertension Positive KRISTIN (antinuclear antibody) 1: 80 Neutropenia Surgical History (Updated 07/23/23 @ 02:14 by Kelley Simms MD) H/O: hysterectomy Family History Other Alzheimer's dementia Cancer Social History Smoking and tobacco/nicotine status: never used tobacco/nicotine Alcohol intake: never Physical Exam Const: COMMON NORMALS: no acute distress, patient oriented x3 and healthy appearing HENMT: COMMON NORMALS: normocephalic and atraumatic HEAD & SCALP: normocephalic and atraumatic Neck/C-Spine: COMMON NORMALS: full ROM and supple Chest: COMMONS NORMALS: normal inspection of the chest Resp: COMMON NORMALS: normal respiratory effort, No retractions, No use of accessory muscles and clear to auscultation bilaterally AUSCULTATION: clear to auscultation bilaterally Cardio: COMMON NORMALS: regular rate, regular rhythm and No murmurs present (Cardio) RATE: regular rate RHYTHM: regular rhythm Extremity: COMMON NORMALS: normal to inspection and full ROM Neuro: COMMON NORMALS: patient oriented x3, moves all extremities and no focal motor deficits Psych: COMMON NORMALS: mental status grossly normal, Normal thought process present and cooperative THOUGHT PROCESS: Normal thought process present Skin: COMMON NORMALS: no rashes or lesions noted and no wounds GENERAL SKIN EXAM: no rashes or lesions noted Course Vital Signs: Vital signs: Vital Signs Temperature 97.5 F L 04/13/24 11:13 Pulse Rate 76 04/13/24 12:32 Respiratory Rate 16 04/13/24 12:32 Blood Pressure 178/75 04/13/24 12:32 Pulse Oximetry 99 04/13/24 12:32 Oxygen Delivery Me thod Room Air 04/13/24 12:18 MDM - Recheck/Abnormal Lab/Rx Medical Decision Making Patient presents here with hypokalemia is demanding to leave I did want to recheck her potassium he states that they have to get home did give her dose of potassium she has refills to her potassium meds she otherwise well-appearing here she is follow-up with PCP in 2 to 4 days to have her potassium rechecked return if worsening. Medical Records I reviewed the patient's medical records. Lab Data I reviewed the patient's lab results. 04/13/24 11:35 04/13/24 11:35 Laboratory Results WBC 4.68 10^3/uL (3.29-11.43) 04/13/24 11:35 RBC 3.50 10^6/uL (3.85-5.65) L 04/13/24 11:35 Hgb 10.00 g/dL (11.27-16.99) L 04/13/24 11:35 Hct 29.7 % (36-47) L 04/13/24 11:35 MCV 84.9 fl (85-98) L 04/13/24 11:35 MCH 28.6 pg (27-33) 04/13/24 11:35 MCHC 33.7 g/dL (30-55) 04/13/24 11:35 RDW 15.9 % (12.1-15.1) H 04/13/24 11:35 Plt Count 68 10^3/cmm (157-399) L 04/13/24 11:35 MPV Not Reportable 04/13/24 11:35 Neut % (Auto) 32.3 % 04/13/24 11:35 Lymph % (Auto) 25.4 % 04/13/24 11:35 [place] % (Auto) 41.0 % 04/13/24 11:35 Eos % (Auto) 0.4 % 04/13/24 11:35 Baso % (Auto) 0.0 % 04/13/24 11:35 Neut # (Auto) 1.51 10^3/uL (1.8-7.7) L 04/13/24 11:35 Lymph # (Auto) 1.2 10^3/uL (0.8-4.8) 04/13/24 11:35 [place] # (Auto) 1.9 10^3/uL (0.2-0.9) H 04/13/24 11:35 Eos # (Auto) 0.0 10^3/uL (0.0-0.8) 04/13/24 11:35 Baso # (Auto) 0.0 10^3/uL (0.0-0.1) 04/13/24 11:35 Nucleated RBC % (auto) 0 % 04/13/24 11:35 Nucleated RBCs # 0.0 /100WBC 04/13/24 11:35 Sodium 139 mmol/L (136-145) 04/13/24 11:35 Potassium 2.6 mmol/L (3.5-5.1) L* 04/13/24 11:35 Chloride 101 mmol/L (98-107) 04/13/24 11:35 Carbon Dioxide 26 mmol/L (22-29) 04/13/24 11:35 Anion Gap 14.6 (5-19) 04/13/24 11:35 BUN 10 mg/dL (8-23) 04/13/24 11:35 Creatinine 0.8 mg/dL (0.5-0.9) 04/13/24 11:35 GFR Calculation Not Reportable 04/13/24 11:35 Glucose 93 mg/dL (65-115) 04/13/24 11:35 Calculated Osmolality 287 mOsm/kg (285-295) 04/13/24 11:35 Calcium 10.5 mg/dL (8.5-10.5) 04/13/24 11:35 Magnesium 1.9 mg/dL (1.7-2.3) 04/13/24 11:35 Total Bilirubin 1.5 mg/dL (0.15-1.2) H 04/13/24 11:35 AST 25 U/L (0-32) 04/13/24 11:35 ALT 12 U/L (0-33) 04/13/24 11:35 Alkaline Phosphatase 96 U/L (35-105) 04/13/24 11:35 Total Protein 7.7 g/dL (6.6-8.7) 04/13/24 11:35 Albumin 4.1 g/dL (3.5-5.2) 04/13/24 11:35 Globulin 3.6 g/dL (1.3-4.6) 04/13/24 11:35 No radiology studies performed this visit Discharge Plan Discharge Patient Disposition: Home Clinical Impression: Hypokalemia Condition: Stable Prescriptions: No Action amlodipine 5 mg tablet 5 mg PO DAILY Discharge Orders: Discharge ED (Routine); Ordered 04/13/24 Ordered By: Javier Reed Referrals: Dave Gross DO [Primary Care Provider] - Discharge Diet: Advance as tolerated Discharge Activity: Resume usual activity Patient Instructions: Hypokalemia (ED) Coding Level of Care Code ED Director Sales Support for Joni Ribera
[2024-04-13 12:10] LABS: Alanine Aminotransferase 12 U/L (0-33); Albumin Level 4.1 g/dL (3.5-5.2); Alkaline Phosphatase 96 U/L (35-105); Anion Gap 14.6 (5-19); Aspartate Amino Transferase 25 U/L (0-32); Blood Urea Nitrogen 10 mg/dL (8-23); Calcium 10.5 mg/dL (8.5-10.5); Carbon Dioxide 26 mmol/L (22-29); Chloride 101 mmol/L (98-107); Creatinine Clr Calc Pharmacy 39.8275; Globulin 3.6 g/dL (1.3-4.6); Glucose 93 mg/dL (65-115); Magnesium 1.9 mg/dL (1.7-2.3); Osmolality Calculated 287 mOsm/kg (285-295); Sodium 139 mmol/L (136-145); Total Bilirubin 1.5 mg/dL (0.15-1.2); Total Protein 7.7 g/dL (6.6-8.7)
--- NOTE | 2024-04-13 12:15 | PC.NURSE ---
pt states pt fell, but refusing back interventions and requesting pt reuqesting to leave. pt educated.
[2024-04-13] MEDS: potassium chloride ER 20 mEq Tablet 60 MEQ PO (12:16)
[2024-04-13 12:18] VITALS: PULSE 80; RESP 16; O2SAT 97
[2024-04-13 12:18] LABS: Potassium 2.6 mmol/L (3.5-5.1); Slide Review Slide Review Perform
[2024-04-13 12:32] VITALS: BP 178/75; PULSE 76; RESP 16; O2SAT 99
== END 2024-04-13 12:34 | disposition home or self-care (01) ==
PROVIDERS: Emergency Provider Emergency Medicine; PCP Electrodiagnostic Medicine
DX: E87.6 Hypokalemia (principal); F03.90 Unspecified dementia, unspecified severity, without behavioral disturbance, psychotic disturbance, mood disturbance, and anxiety; I10 Essential (primary) hypertension
CPT/HCPCS: 36415; 80053; 83735; 85025; 99283

== ENCOUNTER 2024-04-29 20:12 | Observation (INO) | payer MEDICARE, SELFPAY ==
--- NOTE | 2024-04-29 20:21 | CTR_ITS ---
PROCEDURE INFORMATION: Exam: CT Head Without Contrast Exam date and time: 04/29/2024 8:40 PM Age: 84 years old Clinical indication: Injury or trauma; Blunt trauma (contusions or hematomas); Patient HX: EMS arrival from assisted living for fall. History of frequent falls and dementia. ; Additional info: Fall, head injury TECHNIQUE: Imaging protocol: Computed tomography of the head without contrast. Radiation optimization: All CT scans at this facility use at least one of these dose optimization techniques: automated exposure control; mA and/or kV adjustment per patient size (includes targeted exams where dose is matched to clinical indication); or iterative reconstruction. COMPARISON: CT head wo con* [id number] 12/13/2023 5:51 PM RADIATION DOSE METRICS: Total DLP (mGy-cm): 930.88 FINDINGS: Brain: There is mild cerebral volume loss with associated mild prominence of the CSF spaces. There is patchy hypoattenuation in the periventricular white matter. While nonspecific, this is favored to represent chronic small vessel ischemic change. No evidence of acute intracranial hemorrhage. No extra-axial fluid collection. No intracranial mass or mass effect. No midline shift. Cerebral ventricles: The ventricles appear enlarged, in proportion to the mild parenchymal volume loss. Paranasal sinuses: Partially imaged minimal scattered sinus disease in the right posterior ethmoid air cells. Mastoid air cells: Visualized mastoid air cells are clear. Bones: Osseous calvarium appears intact. No fracture is seen. Soft tissues: The visualized superficial soft tissues have a normal appearance. Vasculature: There is calcific atherosclerosis within the cavernous carotids. There is atherosclerotic calcification within the vertebral arteries at the skull base. CT/CT head wo con* [id number] IMPRESSION: 1. No CT evidence of acute intracranial pathology. 2. Chronic senescent changes as above. 3. Minimal paranasal sinus disease in the right ethmoid air cells.
--- NOTE | 2024-04-29 20:21 | CTR_ITS ---
PROCEDURE INFORMATION: Exam: CT Lumbar Spine Without Contrast Exam date and time: 04/29/2024 8:43 PM Age: 84 years old Clinical indication: Injury or trauma; Blunt trauma (contusions or hematomas); Prior surgery; Surgery date: 6+ months; Surgery type: Hysterectomy; Patient HX: EMS arrival from assisted living for fall. C/O low back pain. TECHNIQUE: Imaging protocol: Computed tomography of the lumbar spine without contrast. Radiation optimization: All CT scans at this facility use at least one of these dose optimization techniques: automated exposure control; mA and/or kV adjustment per patient size (includes targeted exams where dose is matched to clinical indication); or iterative reconstruction. COMPARISON: CR XR lumbar spine 2-3V* [id number] 04/17/2024 2:19 PM RADIATION DOSE METRICS: Total DLP (mGy-cm): 517.11 FINDINGS: Bones/joints: There is a comminuted compression deformity at T12 which is incompletely included in the field of view. There is mild posterior deflection of the posterior cortex of T12 vertebral body, mildly narrowing the spinal canal. There has been worsening compression at T12 when compared to recent plain film series. There are 5 lumbar type vertebrae which are intact. Mild to moderate lumbar degenerative disc and facet disease noted. Spinal canal stenosis is demonstrated at L3-L4 and to a lesser degree at L4-L5. There is mild bilateral neural foraminal stenosis at L4-L5 and left neural foraminal stenosis at L5-S1. Visualized portions of the sacrum are intact. Kidneys and ureters: Visualized portions of the kidneys are normal. Vasculature: Moderately calcified normal caliber abdominal aorta. Soft tissues: Atrophic paraspinous and psoas muscles without evidence of abnormal fluid collection. CT/CT lumbar spine wo con* [id number] IMPRESSION: 1. Partly imaged comminuted compression deformity noted at T12 with mild posterior deflection of the cortex into the spinal canal. There appears to have been worsening of vertebral body height loss at T12 when compared to recent plain film series. 2. Moderate degenerative spinal stenosis noted at L3-L4. Mild spinal stenosis at L4-L5. Correlate with any symptoms of neurogenic claudication. 3. Bilateral neural foraminal stenosis at L4-L5 and left neural foraminal stenosis at L5-S1. Correlate with any symptoms of radiculopathy.
[2024-04-29 20:23] VITALS: BP 158/92; PULSE 80; RESP 20; TEMP 36.3; O2SAT 96; BMI 19.5
[2024-04-29 21:47] VITALS: BP 153/62; PULSE 73; RESP 16; O2SAT 97
[2024-04-29 21:52] LABS: Eosinophils % 0.2 %; Hematocrit 28.6 % (36-47); Lymphocytes # 1.5 10^3/uL (0.8-4.8); Lymphocytes % 36.4 %; Mean Corpuscular HGB Conc 32.2 g/dL (30-55); Mean Corpuscular Hemoglobin 28.8 pg (27-33); Mean Corpuscular Volume 89.4 fl (85-98); Monocytes # 1.5 10^3/uL (0.2-0.9); Monocytes % 37.2 %; Neutrophils # 1.05 10^3/uL (1.8-7.7); Neutrophils % 25.7 %; Nucleated Red Blood Cells % 0 %; Platelet Count 79 10^3/cmm (157-399); Red Cell Distribution Width 16.2 % (12.1-15.1); White Blood Count 4.09 10^3/uL (3.29-11.43)
[2024-04-29 22:17] LABS: Alanine Aminotransferase 8 U/L (0-33); Albumin Level 4.3 g/dL (3.5-5.2); Alkaline Phosphatase 139 U/L (35-105); Anion Gap 15.4 (5-19); Aspartate Amino Transferase 17 U/L (0-32); Blood Urea Nitrogen 15 mg/dL (8-23); Calcium 10.2 mg/dL (8.5-10.5); Carbon Dioxide 23 mmol/L (22-29); Chloride 102 mmol/L (98-107); Creatinine Clr Calc Pharmacy 32.1892; Globulin 3.5 g/dL (1.3-4.6); Glucose 111 mg/dL (65-115); Lactic Sepsis W/Reflex 1.2 mmol/L (0.5-2.2); Osmolality Calculated 286 mOsm/kg (285-295); Potassium 3.4 mmol/L (3.5-5.1); Sodium 137 mmol/L (136-145); Total Bilirubin 1.2 mg/dL (0.15-1.2); Total Protein 7.8 g/dL (6.6-8.7)
[2024-04-29 23:08] LABS: Bilirubin Urine Negative (Negative); Blood Urine Negative (Negative); Glucose Urine UA Negative (Normal); Ketones Urine Negative (Negative); Leukocyte Esterase Urine Negative (Negative); Nitrate Urine Negative (Negative); Protein Urine Trace (Negative); Specific Gravity, Urine 1.022 (1.005-1.030); Urine Appearance Clear (CLEAR); Urine Color Yellow (Yellow)
[2024-04-29 23:10] LABS: Bacteria Urine None Seen /hpf; Hyaline Casts Urine 0.81 /lpf; RBC Urine 0-2 /hpf (0-2); Squamous Epithelial Cell Urine 0-5 /hpf (0-5); Universal Test for UA Present (0); WBC Urine 0-5 /hpf (0-5)
--- NOTE | 2024-04-29 23:21 | W.ED.FALL ---
HPI - Fall General: Chief Complaint: Fall Stated Complaint: BACK PAIN Time Seen by Provider: 04/29/24 20:21 History of Present Illness: Patient is a 84-year-old female that presents to the emergency department with and her daughter. Patient has been falling more frequently at home. She is complaining of back pain and inability to stand for long periods of time. Having difficulty ambulating. She was recently evaluated for lumbar back pain and was diagnosed with a T12 compression fracture. This pain is worse since her most recent falls. Patient does have a history of dementia and hypertension. She still lives at home with her . Her is concerned that he is unable to manage/care for her any longer at home. They are currently working with primary care to establish a way into a nursing facility. Associated symptoms-after fall: Denies abdominal pain, chest pain, headache(s) or neck pain Related Data Home Medications Medication Instructions Recorded Confirmed amlodipine 5 mg tablet 5 mg PO DAILY 07/23/23 04/13/24 Allergies Allergy/AdvReac Type Severity Reaction Status Date / Time No Known Allergies Allergy Verified 07/22/23 18:46 Review of Systems Const: Denies: fever(s), chills, body aches or change in appetite Eyes: Denies: blurry vision or eye discomfort ENMT: Denies: throat pain or dental pain Card: Denies: chest pain Resp: Denies: dyspnea GI: Denies: abdominal pain, nausea, vomiting or diarrhea Musc: Reports: back pain; Denies: neck pain Skin/Breast: Denies: rash Neuro: Denies: headache(s) [facility] ED PFSH: Medical History Dementia Melanoma Hypertension Positive KRISTIN (antinuclear antibody) 1: 80 Neutropenia Surgical History (Updated 07/23/23 @ 02:14 by Kelley Simms MD) H/O: hysterectomy Family History Other Alzheimer's dementia Cancer Social History Smoking and tobacco/nicotine status: never used tobacco/nicotine Alcohol intake: never Physical Exam Const: COMMON NORMALS: alert EXAM LIMITATIONS: altered mental status ORIENTATION/CONSCIOUSNESS: Yes oriented to person; not oriented to place and not oriented to time HENMT: COMMON NORMALS: normocephalic and atraumatic HEAD & SCALP: normocephalic and atraumatic Eye: COMMON NORMALS: Equal, round and reactive pupils present and EOMs intact bilaterally PUPIL: Yes Equal, round and reactive pupils present Neck/C-Spine: COMMON NORMALS: full ROM and supple Chest: COMMONS NORMALS: normal inspection of the chest and normal palpation of entire chest wall Resp: COMMON NORMALS: normal respiratory effort, No retractions, No use of accessory muscles and clear to auscultation bilaterally AUSCULTATION: clear to auscultation bilaterally Cardio: COMMON NORMALS: regular rate, regular rhythm and No murmurs present (Cardio) RATE: regular rate RHYTHM: regular rhythm GI: COMMON NORMALS: Normal to inspection, nondistended, normoactive bowel sounds present, Soft to palpation, non-tender and no masses PALPATION: Yes Soft to palpation Back/Pelvis: GENERAL BACK: Yes tenderness OTHER: Right lower back pain. Neurovascular intact Extremity: COMMON NORMALS: normal to inspection and full ROM Neuro: COMMON NORMALS: moves all extremities and no focal motor deficits SENSORIUM/ORIENTATION: Yes alert, Yes oriented to person, No oriented to place and No oriented to time Psych: COMMON NORMALS: Normal thought process present and cooperative THOUGHT PROCESS: Normal thought process present Skin: COMMON NORMALS: no rashes or lesions noted and no wounds GENERAL SKIN EXAM: no rashes or lesions noted Course Vital Signs: Vital signs: Vital Signs Temperature 97.4 F L 04/29/24 20:23 Pulse Rate 75 04/29/24 23:51 Respiratory Rate 16 04/29/24 23:51 Blood Pressure 161/74 04/29/24 23:51 Pulse Oximetry 97 04/29/24 23:51 Oxygen Delivery Me thod Room Air 04/29/24 23:51 MDM - Fall Medical Decision Making Patient is a 84-year-old female who presents to the emergency department with complaints of lumbar back pain, multiple falls. Patient underwent laboratory evaluation that included, urinalysis, lactic acid. Laboratory studies reveal that she is mildly anemic with a hemoglobin of 9.2. Concerning is her platelet count which was 79. However, this does not appear to be new. Chronically low Her lactic acid is normal; BUN and creatinine are normal. There is no evidence of acidosis, liver dysfunction, or renal dysfunction. She did undergo CT head and CT lumbar spine. A CT head reveals no acute intracranial pathology. She does have evidence of fluorescein, new compression deformity noted of T12 with mild posterior deflection of the cortex into the central canal. Moderate to severe degenerative changes noted throughout the lumbar spine with spondylolisthesis and degenerative scoliosis. She has bilateral neuroforaminal stenosis at L4/L5 and left-sided neuroforaminal stenosis at L5/S1. This could represent reason for her but seems to be neurogenic claudication symptoms. Ultimately, family is not interested in any surgical intervention. We are going to obtain a brace for her. She is going to be admitted for pain control and therapies. I did speak with Dr. Simms, she will be admitted Lab Data 04/29/24 21:40 04/29/24 21:[address] 04/29/24 20:21 IMPRESSION: 1. No CT evidence of acute intracranial pathology. 2. Chronic senescent changes as above. 3. Minimal paranasal sinus disease in the right ethmoid air cells. Lumbar Spine CT 04/29/24 20:21 IMPRESSION: 1. Partly imaged comminuted compression deformity noted at T12 with mild posterior deflection of the cortex into the spinal canal. There appears to have been worsening of vertebral body height loss at T12 when compared to recent plain film series. 2. Moderate degenerative spinal stenosis noted at L3-L4. Mild spinal stenosis at L4-L5. Correlate with any symptoms of neurogenic claudication. 3. Bilateral neural foraminal stenosis at L4-L5 and left neural foraminal stenosis at L5-S1. Correlate with any symptoms of radiculopathy. Laboratory Results WBC 4.09 10^3/uL (3.29-11.43) 04/29/24 21:40 RBC 3.20 10^6/uL (3.85-5.65) L 04/29/24 21:40 Hgb 9.20 g/dL (11.27-16.99) L 04/29/24 21:40 Hct 28.6 % (36-47) L 04/29/24 21:40 MCV 89.4 fl (85-98) 04/29/24 21:40 MCH 28.8 pg (27-33) 04/29/24 21:40 MCHC 32.2 g/dL (30-55) 04/29/24 21:40 RDW 16.2 % (12.1-15.1) H 04/29/24 21:40 Plt Count 79 10^3/cmm (157-399) L 04/29/24 21:40 MPV Not Reportable 04/29/24 21:40 Neut % (Auto) 25.7 % 04/29/24 21:40 Lymph % (Auto) 36.4 % 04/29/24 21:40 [place] % (Auto) 37.2 % 04/29/24 21:40 Eos % (Auto) 0.2 % 04/29/24 21:40 Baso % (Auto) 0.0 % 04/29/24 21:40 Neut # (Auto) 1.05 10^3/uL (1.8-7.7) L 04/29/24 21:40 Lymph # (Auto) 1.5 10^3/uL (0.8-4.8) 04/29/24 21:40 [place] # (Auto) 1.5 10^3/uL (0.2-0.9) H 04/29/24 21:40 Eos # (Auto) 0.0 10^3/uL (0.0-0.8) 04/29/24 21:40 Baso # (Auto) 0.0 10^3/uL (0.0-0.1) 04/29/24 21:40 Nucleated RBC % (auto) 0 % 04/29/24 21:40 Nucleated RBCs # 0.0 /100WBC 04/29/24 21:40 Sodium 137 mmol/L (136-145) 04/29/24 21:40 Potassium 3.4 mmol/L (3.5-5.1) L 04/29/24 21:40 Chloride 102 mmol/L (98-107) 04/29/24 21:40 Carbon Dioxide 23 mmol/L (22-29) 04/29/24 21:40 Anion Gap 15.4 (5-19) 04/29/24 21:40 BUN 15 mg/dL (8-23) 04/29/24 21:40 Creatinine 0.9 mg/dL (0.5-0.9) 04/29/24 21:40 GFR Calculation Not Reportable 04/29/24 21:40 Glucose 111 mg/dL (65-115) 04/29/24 21:40 Calculated Osmolality 286 mOsm/kg (285-295) 04/29/24 21:40 Lactic Acid 1.2 mmol/L (0.5-2.2) 04/29/24 21:40 Calcium 10.2 mg/dL (8.5-10.5) 04/29/24 21:40 Total Bilirubin 1.2 mg/dL (0.15-1.2) 04/29/24 21:40 AST 17 U/L (0-32) 04/29/24 21:40 ALT 8 U/L (0-33) 04/29/24 21:40 Alkaline Phosphatase 139 U/L (35-105) H 04/29/24 21:40 Total Protein 7.8 g/dL (6.6-8.7) 04/29/24 21:40 Albumin 4.3 g/dL (3.5-5.2) 04/29/24 21:40 Globulin 3.5 g/dL (1.3-4.6) 04/29/24 21:40 Urine Color Yellow (Yellow) 04/29/24 22:59 Urine Appearance Clear (CLEAR) 04/29/24 22:59 Urine pH 6.0 (5-7) 04/29/24 22:59 Ur Specific [place] 1.022 (1.005-1.030) 04/29/24 22:59 Urine Protein Trace (Negative) A 04/29/24 22:59 Urine Glucose (UA) Negative (Normal) 04/29/24 22:59 Urine Ketones Negative (Negative) 04/29/24 22:59 Urine Blood Negative (Negative) 04/29/24 22:59 Urine Nitrate Negative (Negative) 04/29/24 22:59 Urine Bilirubin Negative (Negative) 04/29/24 22:59 Urine Urobilinogen 1.0 mg/dL (Negative) 04/29/24 22:59 Ur Leukocyte Esterase Negative (Negative) 04/29/24 22:59 Urine RBC 0-2 /hpf (0-2) 04/29/24 22:59 Urine WBC 0-5 /hpf (0-5) 04/29/24 22:59 Ur Squamous Epith Cells 0-5 /hpf (0-5) 04/29/24 22:59 Amorphous Sediment Not Reportable 04/29/24 22:59 Urine Bacteria None seen /hpf (NONE) 04/29/24 22:59 Hyaline Casts 0.81 /lpf 04/29/24 22:59 Urine Mucus Trace /hpf 04/29/24 22:59 All radiology interpretation(s) finalized by discharge Discharge Plan Discharge Patient Disposition: Admitted As Inpatient Clinical Impression: Dementia, Compression fracture of T12 vertebra Condition: Stable Prescriptions: No Action amlodipine 5 mg tablet 5 mg PO DAILY Referrals: Dave Gross DO [Primary Care Provider] - Patient Instructions: Opioid Safety, Pain Management Coding Level of Care Code ED Customer Care Team Coach for Joni Ribera
[2024-04-29 23:27] LABS: Mucus Urine TRACE /hpf
[2024-04-29 23:51] VITALS: BP 161/74; PULSE 75; RESP 16; O2SAT 97
[2024-04-30] VITALS (10 sets, daily range): BP systolic 107–157; BP diastolic 54–77; PULSE 60–85; RESP 15–19; TEMP 36.3–36.8; O2SAT 92–99; BMI 19.5
[2024-04-30] MEDS: morphine 4 mg/mL SDV 1 mL 2 MG IVP (00:49)
--- NOTE | 2024-04-30 01:37 | P.HP_ITS ---
Providers/Chief Complaint 2 Admitting Physician: Kelley Simms MD Primary Care Provider: Dave Gross DO Chief Complaint: BACK PAIN History of Present Illness History is obtained by chart review and discussion with ER physician as patient is unable to contribute in any meaningful way. She is extremely hard of hearing which makes the conversation very difficult. Reji Sage is a 84 year old female with a history of longstanding neutropenia and thrombocytopenia thought to be related to EMILY inhibitor use versus myelodysplastic syndrome, declined bone marrow evaluation in the past, history of positive KRISTIN titers 1 is to 80 without any further evaluation. She was brought to the emergency room today by her and daughter due to history of increasing falls at home. Review of her chart shows patient was in the emergency room in December 2023 reporting multiple history of falls going on for many months. She had stated at the time that when she falls she is unable to get back up. She has a history of dementia able to state her name but does get disoriented as to her whereabouts. He was in the emergency room also on April 13 due to generalized weakness related to hypokalemia. She has been seen by primary care physician also for fall on April 17 at which time x-ray of her lumbar spine which had shown a compression deformity of the superior endplate of T12 with approximately 20% height loss. She presents today with a [address] of her lumbar spine was performed due to complaints of worsening back pain over earlier this month which showed compression deformity at T12 with mild posterior deflection of the posterior cortex of T12 vertebral body and mild narrowing of the spinal canal. There was noted to be worsening compression at T12 when compared to the recent x-ray. Final canal stenosis was noted at L3-L4 and L4-L5 with bilateral neuronal foraminal stenosis. Per discussion with the ER physician patient has refused any surgical intervention for this fracture. Review of Systems 2 General: Reports: ROS unobtainable due to medical condition and ROS unobtainable due to mental status Medications/Allergies Home Medications Medication Instructions Recorded Confirmed Last Taken Type amlodipine 5 mg tablet 5 mg PO DAILY 07/23/23 04/13/24 04/12/24 History Allergies Allergy/AdvReac Type Severity Reaction Status Date / Time No Known Allergies Allergy Verified 07/22/23 18:46 PFSH Acute 2 PFSH: Medical History Dementia Melanoma Hypertension Positive KRISTIN (antinuclear antibody) 1: 80 Neutropenia Surgical History H/O: hysterectomy Family History Other Alzheimer's dementia Cancer Social History Smoking and tobacco/nicotine status: never used tobacco/nicotine Alcohol intake: never Vitals/I&O/Wt Last Vital Signs Temp 97.4 F L 04/29/24 20:23 Pulse 69 04/30/24 00:58 Resp 16 04/30/24 00:58 BP 153/74 04/30/24 00:58 Pulse Ox 97 04/30/24 00:58 O2 Del Method Room Air 04/30/24 00:52 Weight last 48 hrs Weight 45.359 kg Physical Exam 2 Narrative: General: No acute distress, AO x2 HEENT: PERRLA, pupils bilaterally equal and reactive, pallors not present Chest: Normal vesicular breath sounds, no added sounds, equal good air entry bilaterally CVS: S1-S2 regular, no murmurs, no tachycardia, no gallops, no rubs Abdomen: Soft, nontender Neuro: No focal gross motor deficits, no facial deformity, AO x2 Extremities: tenderness to Palpation over back Data 04/29/24 21:40 04/29/24 21:40 Other Labs: Radiology Impressions Head CT 04/29/24 20:21 IMPRESSION: 1. No CT evidence of acute intracranial pathology. 2. Chronic senescent changes as above. 3. Minimal paranasal sinus disease in the right ethmoid air cells. Lumbar Spine CT 04/29/24 20:21 IMPRESSION: 1. Partly imaged comminuted compression deformity noted at T12 with mild posterior deflection of the cortex into the spinal canal. There appears to have been worsening of vertebral body height loss at T12 when compared to recent plain film series. 2. Moderate degenerative spinal stenosis noted at L3-L4. Mild spinal stenosis at L4-L5. Correlate with any symptoms of neurogenic claudication. 3. Bilateral neural foraminal stenosis at L4-L5 and left neural foraminal stenosis at L5-S1. Correlate with any symptoms of radiculopathy. Laboratory Results WBC 4.09 10^3/uL (3.29-11.43) 04/29/24 21:40 RBC 3.20 10^6/uL (3.85-5.65) L 04/29/24 21:40 Hgb 9.20 g/dL (11.27-16.99) L 04/29/24 21:40 Hct 28.6 % (36-47) L 04/29/24 21:40 MCV 89.4 fl (85-98) 04/29/24 21:40 MCH 28.8 pg (27-33) 04/29/24 21:40 MCHC 32.2 g/dL (30-55) 04/29/24 21:40 RDW 16.2 % (12.1-15.1) H 04/29/24 21:40 Plt Count 79 10^3/cmm (157-399) L 04/29/24 21:40 MPV Not Reportable 04/29/24 21:40 Neut % (Auto) 25.7 % 04/29/24 21:40 Lymph % (Auto) 36.4 % 04/29/24 21:40 [place] % (Auto) 37.2 % 04/29/24 21:40 Eos % (Auto) 0.2 % 04/29/24 21:40 Baso % (Auto) 0.0 % 04/29/24 21:40 Neut # (Auto) 1.05 10^3/uL (1.8-7.7) L 04/29/24 21:40 Lymph # (Auto) 1.5 10^3/uL (0.8-4.8) 04/29/24 21:40 [place] # (Auto) 1.5 10^3/uL (0.2-0.9) H 04/29/24 21:40 Eos # (Auto) 0.0 10^3/uL (0.0-0.8) 04/29/24 21:40 Baso # (Auto) 0.0 10^3/uL (0.0-0.1) 04/29/24 21:40 Nucleated RBC % (auto) 0 % 04/29/24 21:40 Nucleated RBCs # 0.0 /100WBC 04/29/24 21:40 Sodium 137 mmol/L (136-145) 04/29/24 21:40 Potassium 3.4 mmol/L (3.5-5.1) L 04/29/24 21:40 Chloride 102 mmol/L (98-107) 04/29/24 21:40 Carbon Dioxide 23 mmol/L (22-29) 04/29/24 21:40 Anion Gap 15.4 (5-19) 04/29/24 21:40 BUN 15 mg/dL (8-23) 04/29/24 21:40 Creatinine 0.9 mg/dL (0.5-0.9) 04/29/24 21:40 GFR Calculation Not Reportable 04/29/24 21:40 Glucose 111 mg/dL (65-115) 04/29/24 21:40 Calculated Osmolality 286 mOsm/kg (285-295) 04/29/24 21:40 Lactic Acid 1.2 mmol/L (0.5-2.2) 04/29/24 21:40 Calcium 10.2 mg/dL (8.5-10.5) 04/29/24 21:40 Total Bilirubin 1.2 mg/dL (0.15-1.2) 04/29/24 21:40 AST 17 U/L (0-32) 04/29/24 21:40 ALT 8 U/L (0-33) 04/29/24 21:40 Alkaline Phosphatase 139 U/L (35-105) H 04/29/24 21:40 Total Protein 7.8 g/dL (6.6-8.7) 04/29/24 21:40 Albumin 4.3 g/dL (3.5-5.2) 04/29/24 21:40 Globulin 3.5 g/dL (1.3-4.6) 04/29/24 21:40 Urine Color Yellow (Yellow) 04/29/24 22:59 Urine Appearance Clear (CLEAR) 04/29/24 22:59 Urine pH 6.0 (5-7) 04/29/24 22:59 Ur Specific [place] 1.022 (1.005-1.030) 04/29/24 22:59 Urine Protein Trace (Negative) A 04/29/24 22:59 Urine Glucose (UA) Negative (Normal) 04/29/24 22:59 Urine Ketones Negative (Negative) 04/29/24 22:59 Urine Blood Negative (Negative) 04/29/24 22:59 Urine Nitrate Negative (Negative) 04/29/24 22:59 Urine Bilirubin Negative (Negative) 04/29/24 22:59 Urine Urobilinogen 1.0 mg/dL (Negative) 04/29/24 22:59 Ur Leukocyte Esterase Negative (Negative) 04/29/24 22:59 Urine RBC 0-2 /hpf (0-2) 04/29/24 22:59 Urine WBC 0-5 /hpf (0-5) 04/29/24 22:59 Ur Squamous Epith Cells 0-5 /hpf (0-5) 04/29/24 22:59 Amorphous Sediment Not Reportable 04/29/24 22:59 Urine Bacteria None seen /hpf (NONE) 04/29/24 22:59 Hyaline Casts 0.81 /lpf 04/29/24 22:59 Urine Mucus Trace /hpf 04/29/24 22:59 Micro: Microbiology 04/29/24 21:40 Blood Culture - Preliminary Blood SPECIMEN COLLECTED A&P Assessment and plan (1) Compression fracture of T12 vertebra: (2) Dementia: (3) Uncontrolled pain: (4) Recurrent falls: Plan 84-year-old lady with dementia, history of pancytopenia, brought to the hospital today by family due to history of recurrent falls and increasing back pain. Patient was recently found to have a T12 vertebral fracture on April 17. CT of the lumbar spine completed today shows worsening of the compression fracture. There is noted to be mild posterior deflection of the cortex into the spinal canal. There was also some degenerative changes and spinal stenosis noted at L3-L4-L5 level which may be resulting in neurogenic claudication leading to recurrent falls. Patient's family had earlier stated they are not amenable to any surgical interventions Patient has been falling increasingly at home and it has been tough for family to keep up to keep her safe. Reports that she has had uncontrolled pain Admit to [facility] for pain management Morphine 2 mg IV every 6 hours as needed. Hydrocodone 11/11/24 1 tablet every 6 hours as needed. TLSO brace. PT OT assessment to assess level of independent functioning and appropriate disposition planning. DVT prophylaxis: SCDs only, no anticoagulation due to platelet count at 79,000, history of chronic thrombocytopenia DNR/DNI Attestations 2 Medical Necessity Statement*: Less than 2 midnight stay is anticipated at this time, observation Coding Level of Care Code Acute Code for Chg Fwd Straight Forward/Low MDM includes number and complexity of problems actively addressed during encounter, amount and/or complexity of data reviewed/ordered and described risk of complication, morbidity or mortality of management as documented Diagnoses Compression fracture of T12 vertebra S22.080A Dementia F03.90 Uncontrolled pain R52 Recurrent falls R29.6
--- NOTE | 2024-04-30 02:11 | PC.NURSE ---
Patient alert and oriented to person, birthday, and place upon admission assessment. Patient has a history of dementia and required a 1:1 sitter the previous hospital stay due to altered mental status. Patient does not have family with her at bedside at this time. This nurse has assessed patient and does not see a need for a 1:1 sitter at this time. Bed alarm is set and in lowest position, and call light within reach. This nurse has instructed patient on calling for assistance if needed. Charge nurse and house registry rn has been notified of history of the previous stay. Plan of care ongoing.
[2024-04-30] MEDS: potassium chloride ER 20 mEq Tablet PO (06:14)
[2024-04-30] MEDS: pantoprazole DR 40 mg Tablet PO (09:12)
[2024-04-30] MEDS: amlodipine 5 mg Tablet PO (11:26)
[2024-04-30 12:36] LABS: Estmated Average Glucose 94; Hemoglobin A1C 4.9 % (4.0-6.0)
[2024-04-30 12:42] LABS: Iron 29 ug/dL (37-145); Thyroid Stimulating Hormone 4.74 uIU/mL (0.27-4.20); Total Iron Binding Capacity 240 mcg/dl; Unsaturated Iron Binding 211 ug/dL (112-347); Vitamin B12 462 pg/mL (232-1245)
--- NOTE | 2024-04-30 14:15 | W.PM.EVENTAC ---
Event Note Event Note: Admitted earlier today morning. Seen with at bedside. Has been complaining of patient getting weaker with recurrent falls recently. Denies any nausea, vomiting, headache. Patient has been complaining of back pain for a while. No concerns for UTI and pneumonia for now. Hold off on antibiotics. No concerns for SIOBHAN on dehydration on admission. Start on gentle IV hydration with normal saline at 50 cc/h for 1 bag. Patient sleepy so we will have poor oral intake. Check iron panel. Appreciate TSH. Check free T4. Check vitamin B12 and folate levels. Blood pressure is elevated. Restart home dose of amlodipine. Watch for hypotension. Physical therapy evaluation. Change dose of morphine to 1 mg every 6 hour as needed as patient is overly sleepy. requesting transition to SNF possibly as he is elderly and not able to take care of his 's needs anymore.
[2024-04-30 14:33] LABS: Alanine Aminotransferase 7 U/L (0-33); Albumin Level 4.2 g/dL (3.5-5.2); Alkaline Phosphatase 131 U/L (35-105); Anion Gap 15.4 (5-19); Aspartate Amino Transferase 17 U/L (0-32); Blood Urea Nitrogen 13 mg/dL (8-23); Calcium 10.2 mg/dL (8.5-10.5); Carbon Dioxide 25 mmol/L (22-29); Chloride 100 mmol/L (98-107); Creatinine Clr Calc Pharmacy 38.9312; Globulin 3.4 g/dL (1.3-4.6); Glucose 105 mg/dL (65-115); Osmolality Calculated 284 mOsm/kg (285-295); Potassium 3.4 mmol/L (3.5-5.1); Sodium 137 mmol/L (136-145); Total Bilirubin 1.1 mg/dL (0.15-1.2); Total Protein 7.6 g/dL (6.6-8.7)
[2024-04-30 14:40] LABS: Free T4 Free Thyroxine 1.26 ng/dL (0.82-1.77)
[2024-04-30] MEDS: sodium chloride 0.9% 1,000 ML 50 ML IV (15:49)
[2024-05-01] VITALS (7 sets, daily range): BP systolic 101–138; BP diastolic 48–72; PULSE 56–87; RESP 15–18; TEMP 36.4–37; O2SAT 93–99; BMI 23.5
[2024-05-01 07:54] LABS: Hematocrit 26.4 % (36-47); Lymphocytes # 1.4 10^3/uL (0.8-4.8); Lymphocytes % 49.8 %; Mean Corpuscular HGB Conc 31.1 g/dL (30-55); Mean Corpuscular Hemoglobin 28.4 pg (27-33); Mean Corpuscular Volume 91.3 fl (85-98); Monocytes # 0.9 10^3/uL (0.2-0.9); Monocytes % 30.4 %; Neutrophils % 19.1 %; Nucleated Red Blood Cells % 0 %; Platelet Count 61 10^3/cmm (157-399); Red Blood Count 2.89 10^6/uL (3.85-5.65); Red Cell Distribution Width 16.6 % (12.1-15.1); White Blood Count 2.89 10^3/uL (3.29-11.43)
[2024-05-01 08:15] LABS: Neutrophils # 0.55 10^3/uL (1.8-7.7); Slide Review Slide Review Perform
[2024-05-01 08:17] LABS: Alanine Aminotransferase < 5 U/L (0-33); Albumin Level 3.7 g/dL (3.5-5.2); Alkaline Phosphatase 122 U/L (35-105); Anion Gap 12.5 (5-19); Aspartate Amino Transferase 13 U/L (0-32); Blood Urea Nitrogen 19 mg/dL (8-23); Calcium 9.6 mg/dL (8.5-10.5); Carbon Dioxide 21 mmol/L (22-29); Chloride 107 mmol/L (98-107); Creatinine Clr Calc Pharmacy 39.1479; Globulin 3.1 g/dL (1.3-4.6); Glucose 95 mg/dL (65-115); Osmolality Calculated 286 mOsm/kg (285-295); Potassium 3.5 mmol/L (3.5-5.1); Sodium 137 mmol/L (136-145); Total Bilirubin 0.8 mg/dL (0.15-1.2); Total Protein 6.8 g/dL (6.6-8.7)
[2024-05-01 08:19] LABS: Chol HDL Ratio 5.42 mg/dL (0.0-4.40); Cholesterol 130 mg/dL (0-200); HDL Cholesterol 24 mg/dL (60-100); LDL Cholesterol Calculated 79 mg/dL (50-129); Magnesium 1.9 mg/dL (1.7-2.3); Triglycerides 133 mg/dL (0-150); VLDL Cholestrol Calculation 27 mg/dL (0-30)
[2024-05-01 08:33] LABS: Folate Level 3.7 ng/mL (4.8-37.3)
[2024-05-01] MEDS: pantoprazole DR 40 mg Tablet PO (08:54)
[2024-05-01] MEDS: amlodipine 5 mg Tablet PO (08:54)
--- NOTE | 2024-05-01 09:26 | PC.PHAR ---
Patient's states she takes a blood Pressure medication on file at [facility] is an Amlodipine 5mg last fill 10/13/23 she woudl have been out in January . He also states she takes a Potasium , Pharmacy doesn't have an rx could be over the counter .
--- NOTE | 2024-05-01 10:47 | PC.CHAP ---
Pastoral Care Encounter/Spiritual Assessment Type of Contact [] Declined business office associate visit [] Patient/Family/Request visit [] Outpatient visit [] Follow-up visit [] Physician referral [] Code/Alert [x] Routine visit [] Staff referral [] Actively dying [] Patient sleeping [x] Family support [] [] Out of room [] Palliative care [] [] Receiving care in room [] Pre-surgical visit [] Trauma [] Long length of stay [] ICU visit [] Other: Relational/Emotional Strength [] Patient feels connected with others/family/visitors/staff [] Distress [] Loneliness/isolation [] Abandonment Spirituality of Patient [x] Person of Tatiana [] Attends Christianity of their [place] [x] Believes in Prayer [] Reads Bible or Episcopalian materials [] There are Spiritual issues to be addressed Floor Grinder Interventions [x] Prayer [x] Active listening [] Non-anxious presence [] Spiritual/emotional support [] Crisis/trauma care [] Spiritual counseling [] Bereavement support [] Provided bereavement packet [x] Provided Bible/devotional materials [] Provided toy/stuffed animal, coloring book to patient or family member [] Provided Communion [] Anointing/[place] [] Salvation [x] Completed spiritual assessment [] Other: Impact on Illness or Injury [] Angry [] Fearful [] Anxious [] Often cries [] Exhaustion [] Unable to work [] Unable to attend alevism [] Unable to walk/stand [] Unable to read [] Unable to drive [] Unable to eat/drink [] Unable to sleep [] Unable to be with family [] Patient intubated [] Other: Summary Time spent with patient 10 min
--- NOTE | 2024-05-01 15:17 | P.PN_ITS ---
Subjective 2 Subjective: Patient was seen this morning, family members at bedside, patient's son, patient's , he tells me that she is fallen quite frequently, and is too weak to pick her up off the ground, patient's son tells me that over the last year she has had a gradual decline in her cognitive level of functioning, she does have episodes of confusion, currently patient alert to person, not to place, not to time she can recognize family members at bedside, she can carry out conversations, she has no specific complaints Vitals/I&O/Wt Last Vital Signs Temp 97.7 F 05/01/24 12:00 Pulse 87 05/01/24 12:00 Resp 18 05/01/24 12:00 BP 101/48 05/01/24 12:00 Pulse Ox 95 05/01/24 12:00 O2 Del Method Room Air 05/01/24 12:00 05/01/24 05/01/24 05/01/24 06:59 14:59 22:59 Intake Total 1594 / 1594 Balance 1594 / 1594 Weight last 48 hrs Weight 54.567 kg Weight 53.887 kg Weight 45.359 kg Weight 45.359 kg Physical Exam 2 Const: COMMON NORMALS: no acute distress Neck/C-Spine: COMMON NORMALS: no JVD Resp: COMMON NORMALS: normal respiratory effort, No retractions, No use of accessory muscles and clear to auscultation bilaterally AUSCULTATION: clear to auscultation bilaterally Cardio: COMMON NORMALS: no JVD, regular rate, regular rhythm, S1 normal heart sound present and S2 normal heart sound present RATE: regular rate RHYTHM: regular rhythm HEART SOUNDS: S1 normal heart sound present and S2 normal heart sound present GI: COMMON NORMALS: Normal to inspection, nondistended, normoactive bowel sounds present and non-tender Extremity: COMMON NORMALS: no pedal edema Psych: COMMON NORMALS: mental status grossly normal Data 05/01/24 07:21 05/01/24 07:21 Micro: Microbiology 04/29/24 22:02 Blood Culture - Preliminary Blood SPECIMEN COLLECTED 04/29/24 21:40 Blood Culture - Preliminary Blood NEGATIVE TO DATE A&P Assessment and plan (1) Compression fracture of T12 vertebra: (2) Dementia: (3) Uncontrolled pain: (4) Recurrent falls: Plan 84-year-old lady with dementia, history of pancytopenia, brought to the hospital today by family due to history of recurrent falls and increasing back pain. -T12 vertebral fracture on April 17 - CT of the lumbar spine completed today shows worsening of the compression fracture. There is noted to be mild posterior deflection of the cortex into the spinal canal. There was also some degenerative changes and spinal stenosis noted at L3-L4-L5 level which may be resulting in neurogenic claudication leading to recurrent falls. -Patient's family had earlier stated they are not amenable to any surgical interventions -Patient has been falling increasingly at home and it has been tough for family to keep up to keep her safe. -Reports that she has had uncontrolled pain - pain management -Morphine 2 mg IV every 8hours as needed, for breakthrough pain -Oxycodone 5-325 1 tablet every 6 hours as needed. -TLSO brace. -PT OT assessment to assess level of independent functioning and appropriate disposition planning. -Developing neutropenia, monitor, monitor for fevers, DVT prophylaxis: SCDs only, no anticoagulation due to platelet count at 79,000, history of chronic thrombocytopenia DNR/DNI Attestations 2 Medical Necessity Statement*: Patient requires hospitalization for recurrent falls, uncontrolled pain, T12 vertebral fracture Diagnoses Compression fracture of T12 vertebra S22.080A Dementia F03.90 Uncontrolled pain R52 Recurrent falls R29.6
[2024-05-01] MEDS: oxyCODONE-APAP 5-325 mg Tablet 1 TAB PO (20:58)
[2024-05-02] VITALS (8 sets, daily range): BP systolic 134–176; BP diastolic 64–91; PULSE 66–120; RESP 16–18; TEMP 36.3–37.1; O2SAT 94–99
[2024-05-02 05:22] LABS: Basophils % 0.3 %; Eosinophils % 0.5 %; Hematocrit 26.1 % (36-47); Lymphocytes # 1.5 10^3/uL (0.8-4.8); Lymphocytes % 39.6 %; Mean Corpuscular HGB Conc 30.7 g/dL (30-55); Mean Corpuscular Hemoglobin 28.3 pg (27-33); Mean Corpuscular Volume 92.2 fl (85-98); Monocytes # 1.5 10^3/uL (0.2-0.9); Monocytes % 38.3 %; Neutrophils % 20.5 %; Nucleated Red Blood Cells % 0 %; Platelet Count 59 10^3/cmm (157-399); Red Blood Count 2.83 10^6/uL (3.85-5.65); White Blood Count 3.86 10^3/uL (3.29-11.43)
[2024-05-02 05:44] LABS: Anion Gap 13.7 (5-19); Blood Urea Nitrogen 15 mg/dL (8-23); Calcium 9.9 mg/dL (8.5-10.5); Carbon Dioxide 23 mmol/L (22-29); Chloride 107 mmol/L (98-107); Creatinine Clr Calc Pharmacy 34.7982; Glucose 99 mg/dL (65-115); Magnesium 1.9 mg/dL (1.7-2.3); Osmolality Calculated 291 mOsm/kg (285-295); Potassium 3.7 mmol/L (3.5-5.1); Slide Review Slide Review Perform; Sodium 140 mmol/L (136-145)
[2024-05-02 05:48] LABS: Neutrophils # 0.79 10^3/uL (1.8-7.7)
[2024-05-02] MEDS: amlodipine 5 mg Tablet PO (08:12)
[2024-05-02] MEDS: pantoprazole DR 40 mg Tablet PO (08:12)
--- NOTE | 2024-05-02 14:44 | P.PN_ITS ---
Subjective 2 Subjective: Patient was seen this morning no family numbers at bedside, she is alert to person, not to place, not to time, she has been asking for her , she has no pain complaints Vitals/I&O/Wt Last Vital Signs Temp 98.0 F 05/02/24 11:37 Pulse 78 05/02/24 11:37 Resp 16 05/02/24 11:37 BP 145/73 05/02/24 11:37 Pulse Ox 97 05/02/24 11:37 O2 Del Method Room Air 05/02/24 11:37 05/01/24 05/02/24 05/02/24 22:59 06:59 14:59 Intake Total 290 / 1884 240 / 2124 360 / 360 Output Total 400 / 400 Balance 290 / 1884 -160 / 1724 360 / 360 Weight last 48 hrs Weight 54.703 kg Weight 54.567 kg Physical Exam 2 Const: COMMON NORMALS: no acute distress ORIENTATION/CONSCIOUSNESS: Yes awake and Yes oriented to person; not oriented to place and not oriented to time Resp: COMMON NORMALS: normal respiratory effort, No retractions, No use of accessory muscles and clear to auscultation bilaterally AUSCULTATION: clear to auscultation bilaterally Cardio: COMMON NORMALS: regular rate, regular rhythm, S1 normal heart sound present and S2 normal heart sound present RATE: regular rate RHYTHM: r egular rhythm HEART SOUNDS: S1 normal heart sound present and S2 normal heart sound present GI: COMMON NORMALS: Normal to inspection, nondistended, normoactive bowel sounds present and non-tender Extremity: COMMON NORMALS: no pedal edema Neuro: SENSORIUM/ORIENTATION: Yes oriented to person, No oriented to place and No oriented to time Data 05/02/24 04:36 05/02/24 04:36 Micro: Microbiology 04/29/24 22:02 Blood Culture - Preliminary Blood NEGATIVE TO DATE A&P Assessment and plan (1) Compression fracture of T12 vertebra: (2) Dementia: (3) Uncontrolled pain: (4) Recurrent falls: Plan 84-year-old lady with dementia, history of pancytopenia, brought to the hospital today by family due to history of recurrent falls and increasing back pain. -T12 vertebral fracture on April 17 - CT of the lumbar spine completed today shows worsening of the compression fracture. There is noted to be mild posterior deflection of the cortex into the spinal canal. There was also some degenerative changes and spinal stenosis noted at L3-L4-L5 level which may be resulting in neurogenic claudication leading to recurrent falls. -Patient's family had earlier stated they are not amenable to any surgical interventions -Patient has been falling increasingly at home and it has been tough for family to keep up to keep her safe. -Reports that she has had uncontrolled pain - pain management -Morphine 2 mg IV every 8hours as needed, for breakthrough pain -Oxycodone 5-325 1 tablet every 6 hours as needed. -TLSO brace. -PT OT assessment to assess level of independent functioning and appropriate disposition planning. -Developing neutropenia, monitor, monitor for fevers, -Altered mental status, likely from underlying dementia, monitor, start Zyprexa 5 mg at bedtime tonight DVT prophylaxis: SCDs only, no anticoagulation due to platelet count at 79,000, history of chronic thrombocytopenia DNR/DNI Attestations 2 Medical Necessity Statement*: Patient requires hospitalization for falls, T12 vertebral fracture Diagnoses Compression fracture of T12 vertebra S22.080A Dementia F03.90 Uncontrolled pain R52 Recurrent falls R29.6
[2024-05-02] MEDS: OLANZapine 5 mg ODT PO (20:16)
[2024-05-02] MEDS: oxyCODONE-APAP 5-325 mg Tablet 1 TAB PO (22:45)
[2024-05-03] VITALS (15 sets, daily range): BP systolic 105–154; BP diastolic 55–96; PULSE 68–97; RESP 15–18; TEMP 36.4–36.9; O2SAT 93–98
[2024-05-03 08:25] LABS: Basophils % 0.2 %; Eosinophils % 0.4 %; Lymphocytes # 1.8 10^3/uL (0.8-4.8); Lymphocytes % 38.4 %; Mean Corpuscular HGB Conc 30.4 g/dL (30-55); Mean Corpuscular Hemoglobin 28.1 pg (27-33); Mean Corpuscular Volume 92.6 fl (85-98); Monocytes # 1.9 10^3/uL (0.2-0.9); Neutrophils % 20.4 %; Nucleated Red Blood Cells % 0 %; Platelet Count 65 10^3/cmm (157-399); Red Cell Distribution Width 17.4 % (12.1-15.1); White Blood Count 4.77 10^3/uL (3.29-11.43)
[2024-05-03 08:54] LABS: Neutrophils # 0.97 10^3/uL (1.8-7.7)
[2024-05-03 08:55] LABS: Slide Review Slide Review Perform
[2024-05-03 09:03] LABS: Blood Urea Nitrogen 20 mg/dL (8-23); Calcium 10.3 mg/dL (8.5-10.5); Carbon Dioxide 24 mmol/L (22-29); Chloride 106 mmol/L (98-107); Creatinine Clr Calc Pharmacy 39.6197; Glucose 96 mg/dL (65-115); Magnesium 1.8 mg/dL (1.7-2.3); Osmolality Calculated 292 mOsm/kg (285-295); Sodium 140 mmol/L (136-145)
[2024-05-03 09:17] LABS: Anion Gap 13.9 (5-19); Potassium 3.9 mmol/L (3.5-5.1)
[2024-05-03] MEDS: amlodipine 5 mg Tablet PO (09:35)
[2024-05-03] MEDS: pantoprazole DR 40 mg Tablet PO (09:35)
[2024-05-03 10:02] LABS: SARS Covid-2 Antigen negative (Negative)
--- NOTE | 2024-05-03 10:57 | PC.OT ---
OT TREATMENT ATTEMPTED AT 1030; PATIENT SLEEPING SOUNDLY; DOES NOT AWAKEN
--- NOTE | 2024-05-03 13:02 | PM.DCS ---
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 There is noted to be mild posterior deflection of the cortex into the spinal canal. There was also some degenerative changes and spinal stenosis noted at L3-L4-L5 level which may be resulting in neurogenic claudication leading to recurrent falls. -Patient's family had earlier stated they are not amenable to any surgical interventions -Patient has been falling increasingly at home and it has been tough for family to keep up to keep her safe. -Reports that she has had uncontrolled pain -Received pain control as inpatient, TLSO brace, clinical monitoring, PT OT -Overall patient's pain is more under control -Discharge with TLSO brace -Discharged with oxycodone as needed as needed for pain -Patient will be referred to Dr. Arredondo if she continues to have complaints of pain over lower lumbar spine she might be a candidate for kyphoplasty Patient's hospitalization was complicated by episodes of confusion, likely related to her underlying dementia, discharged on Zyprexa at bedtime -On discharge patient is alert to person, not to place, not to time she does follow commands Patient's hospitalization was complicated by pancytopenia -Of concern she has developed neutropenia -No evidence of infection, afebrile on room air -I had a detailed discussion with patient's daughter about patient's pancytopenia, neutropenia increased risk of infections, -Will have the [facility] monitor her if she develops fevers or she is increasingly confused, be more proactive about testing for UTI, pneumonia and being proactive by treating her with antibiotics as she is more predisposed to develop infections -Will have patient follow-up with hematology oncology as I believe the cause is likely bone marrow related, such as myelodysplastic syndrome -I did have a discussion with patient's daughter about bone marrow biopsy, however family for now is not so keen -She might need to be monitored chronically for increased risk of infections, and morbidity mortality associated -Patient's daughter voiced understanding, all questions answered, great to proceed Patient's hospitalization was complicated by pancytopenia -Of concern she developed anemia -Requiring 1 unit PRBC -She has not had any hemodynamic compromise no bloody or black stools -Likely related to pancytopenia as above, likely related to bone marrow disorder such as myelodysplastic syndrome -I had a detailed discussion with patient's daughter about patient's increased risk of anemia, fatigue, malaise -Will have the penitentiary monitor hemoglobin tomorrow and on a weekly basis -Will have her follow-up with hematology oncology as outpatient -Might become transfusion dependent anemia -I have discharged her Protonix and Carafate I doubt that she has a GI bleed -Nonetheless certainly this could be an option however family is leaning towards no significant aggressive interventions or testing -Spoke to patient's daughter about this, she voiced understanding, all question answered, agreed to proceed with plan Thrombocytopenia, monitor Folic acid deficiency, discharged on folic acid Patient is at increased risk of hypercoagulable event given her bedbound status her T12 compression fracture, and as she is pancytopenic, he has an increased risk of morbidity and mortality with anticoagulant/antiplatelet therapy, and she has an increased risk of tolerance with hypercoagulable events such as DVT and PE, nonetheless continue mobility, bed exercises, monitor for hypercoagulable events, if so please come back to the hospital -Spoke to patient's family, they voiced understanding, all questions answered Physical Exam Const: COMMON NORMALS: no acute distress ORIENTATION/CONSCIOUSNESS: Yes awake and Yes oriented to person; not oriented to place and not oriented to time Resp: COMMON NORMALS: normal respiratory effort, No retractions, No use of accessory muscles and clear to auscultation bilaterally AUSCULTATION: clear to auscultation bilaterally Cardio: COMMON NORMALS: regular rate, regular rhythm, S1 normal heart sound present and S2 normal heart sound present RATE: regular rate RHYTHM: regular rhythm HEART SOUNDS: S1 normal heart sound present and S2 normal heart sound present GI: COMMON NORMALS: Normal to inspection, nondistended, normoactive bowel sounds present and non-tender Extremity: COMMON NORMALS: no pedal edema Neuro: SENSORIUM/ORIENTATION: Yes oriented to person, No oriented to place and No oriented to time Psych: COMMON NORMALS: mental status grossly normal Discharge Data Studies Completed and Pending Completed Studies During Hospitalization Category Date Time Status CT head wo con* [id number] Stat Cat Scan 04/29/24 20:[address] lumbar spine wo con* [id number] Stat Cat Scan 04/29/24 20:21 Completed Pending at discharge Category Date Time Status Basic Metabolic Panel AM LABS Lab 05/04/24 04:00 Ordered Blood Culture Stat Lab 04/29/24 22:02 Results Complete Blood Count w/Auto AM LABS Lab 05/04/24 04:00 Ordered Ferritin Stat Lab 05/03/24 13:01 Ordered Hemoglobin and Hematocrit Stat Lab 05/03/24 12:38 Ordered Radiology Impressions Head CT 04/29/24 20:21 IMPRESSION: 1. No CT evidence of acute intracranial pathology. 2. Chronic senescent changes as above. 3. Minimal paranasal sinus disease in the right ethmoid air cells. Lumbar Spine CT 04/29/24 20:21 IMPRESSION: 1. Partly imaged comminuted compression deformity noted at T12 with mild posterior deflection of the cortex into the spinal canal. There appears to have been worsening of vertebral body height loss at T12 when compared to recent plain film series. 2. Moderate degenerative spinal stenosis noted at L3-L4. Mild spinal stenosis at L4-L5. Correlate with any symptoms of neurogenic claudication. 3. Bilateral neural foraminal stenosis at L4-L5 and left neural foraminal stenosis at L5-S1. Correlate with any symptoms of radiculopathy. Laboratory Results WBC 4.77 10^3/uL (3.29-11.43) 05/03/24 08:17 RBC 2.70 10^6/uL (3.85-5.65) L 05/03/24 08:17 Hgb 7.60 g/dL (11.27-16.99) L 05/03/24 08:17 Hct 25.0 % (36-47) L 05/03/24 08:17 MCV 92.6 fl (85-98) 05/03/24 08:17 MCH 28.1 pg (27-33) 05/03/24 08:17 MCHC 30.4 g/dL (30-55) 05/03/24 08:17 RDW 17.4 % (12.1-15.1) H 05/03/24 08:17 Plt Count 65 10^3/cmm (157-399) L 05/03/24 08:17 MPV TNP 05/03/24 08:17 Neut % (Auto) 20.4 % 05/03/24 08:17 Lymph % (Auto) 38.4 % 05/03/24 08:17 [place] % (Auto) 40.0 % 05/03/24 08:17 Eos % (Auto) 0.4 % 05/03/24 08:17 Baso % (Auto) 0.2 % 05/03/24 08:17 Neut # (Auto) 0.97 10^3/uL (1.8-7.7) L* 05/03/24 08:17 Lymph # (Auto) 1.8 10^3/uL (0.8-4.8) 05/03/24 08:17 [place] # (Auto) 1.9 10^3/uL (0.2-0.9) H 05/03/24 08:17 Eos # (Auto) 0.0 10^3/uL (0.0-0.8) 05/03/24 08:17 Baso # (Auto) 0.0 10^3/uL (0.0-0.1) 05/03/24 08:17 Nucleated RBC % (auto) 0 % 05/03/24 08:17 Nucleated RBCs # 0.0 /100WBC 05/03/24 08:17 Sodium 140 mmol/L (136-145) 05/03/24 08:17 Potassium 3.9 mmol/L (3.5-5.1) 05/03/24 08:17 Chloride 106 mmol/L (98-107) 05/03/24 08:17 Carbon Dioxide 24 mmol/L (22-29) 05/03/24 08:17 Anion Gap 13.9 (5-19) 05/03/24 08:17 BUN 20 mg/dL (8-23) 05/03/24 08:17 Creatinine 0.7 mg/dL (0.5-0.9) 05/03/24 08:17 GFR Calculation Not Reportable 05/03/24 08:17 Glucose 96 mg/dL (65-115) 05/03/24 08:17 Estimat Average Glucose 94 04/30/24 11:48 Hemoglobin A1c 4.9 % (4.0-6.0) 04/30/24 11:48 Calculated Osmolality 292 mOsm/kg (285-295) 05/03/24 08:17 Lactic Acid 1.2 mmol/L (0.5-2.2) 04/29/24 21:40 Calcium 10.3 mg/dL (8.5-10.5) 05/03/24 08:17 Magnesium 1.8 mg/dL (1.7-2.3) 05/03/24 08:17 Iron 29 ug/dL (37-145) L 04/30/24 11:48 TIBC 240 mcg/dl 04/30/24 11:48 % Saturation 12.0 % (20-50) L 04/30/24 11:48 Unsat Iron Binding 211 ug/dL (112-347) 04/30/24 11:48 Total Bilirubin 0.8 mg/dL (0.15-1.2) 05/01/24 07:21 AST 13 U/L (0-32) 05/01/24 07:21 ALT < 5 U/L (0-33) 05/01/24 07:21 Alkaline Phosphatase 122 U/L (35-105) H 05/01/24 07:21 Total Protein 6.8 g/dL (6.6-8.7) 05/01/24 07:21 Albumin 3.7 g/dL (3.5-5.2) 05/01/24 07:21 Globulin 3.1 g/dL (1.3-4.6) 05/01/24 07:21 Triglycerides 133 mg/dL (0-150) 05/01/24 07:21 Cholesterol 130 mg/dL (0-200) 05/01/24 07:21 LDL Cholesterol, Calc 79 mg/dL (50-129) 05/01/24 07:21 Total VLDL Cholesterol 27 mg/dL (0-30) 05/01/24 07:21 HDL Cholesterol 24 mg/dL (60-100) L 05/01/24 07:21 Cholesterol/HDL Ratio 5.42 mg/dL (0.0-4.40) H 05/01/24 07:21 Vitamin B12 462 pg/mL (232-1245) 04/30/24 11:48 Folate 3.7 ng/mL (4.8-37.3) L 05/01/24 07:21 TSH 4.74 uIU/mL (0.27-4.20) H 04/30/24 11:48 Free T4 1.26 ng/dL (0.82-1.77) 04/30/24 11:48 Urine Color Yellow (Yellow) 04/29/24 22:59 Urine Appearance Clear (CLEAR) 04/29/24 22:59 Urine pH 6.0 (5-7) 04/29/24 22:59 Ur Specific Superior 1.022 (1.005-1.030) 04/29/24 22:59 Urine Protein Trace (Negative) A 04/29/24 22:59 Urine Glucose (UA) Negative (Normal) 04/29/24 22:59 Urine Ketones Negative (Negative) 04/29/24 22:59 Urine Blood Negative (Negative) 04/29/24 22:59 Urine Nitrate Negative (Negative) 04/29/24 22:59 Urine Bilirubin Negative (Negative) 04/29/24 22:59 Urine Urobilinogen 1.0 mg/dL (Negative) 04/29/24 22:59 Ur Leukocyte Esterase Negative (Negative) 04/29/24 22:59 Urine RBC 0-2 /hpf (0-2) 04/29/24 22:59 Urine WBC 0-5 /hpf (0-5) 04/29/24 22:59 Ur Squamous Epith Cells 0-5 /hpf (0-5) 04/29/24 22:59 Amorphous Sediment Not Reportable 04/29/24 22:59 Urine Bacteria None seen /hpf (NONE) 04/29/24 22:59 Hyaline Casts 0.81 /lpf 04/29/24 22:59 Urine Mucus Trace /hpf 04/29/24 22:59 SARS-CoV-2 Ag (Rapid) negative (Negative) 05/03/24 09:40 Vitals Last Vital Signs Temp 97.9 F 05/03/24 11:03 Pulse 68 05/03/24 11:03 Resp 17 05/03/24 11:03 BP 121/69 05/03/24 11:03 Pulse Ox 93 05/03/24 11:03 O2 Del Method Room Air 05/03/24 11:03 Discharge Plan Discharge Patient Disposition: Xfer SNF Condition: Stable Prescriptions: New oxycodone-acetaminophen 5-325 mg Tablet 1 tab PO Q6H PRN (Reason: Severe Pain) 5 Days Qty: 20 0RF olanzapine 5 mg Tablet,Disintegrating 5 mg PO BEDTIME 30 Days Qty: 30 0RF pantoprazole 40 mg Tablet,Delayed Release (Dr/Ec) 40 mg PO BIDWM 30 Days Qty: 60 0RF sucralfate [Carafate] 1 gram tablet 1 g PO BID 28 Days Qty: 56 0RF ferrous sulfate 325 mg (65 mg iron) tablet 325 mg PO BID 30 Days Qty: 60 0RF folic acid 1 mg tablet 1 mg PO DAILY 30 Days Qty: 30 0RF Continued amlodipine 5 mg tablet 5 mg PO DAILY galantamine 8 mg capsule,ext rel. pellets 24 hr 8 mg PO DAILY Discharge Orders: Discharge Order (Routine); Ordered 05/04/24 Ordered By: Johnie Cerda Referrals: [facility] [place] [Outside] Andre Arredondo DO [Physician] - 2 weeks Hector Shah MD [Hospitalist] - 2 weeks (We have notified your physician's clinic of the need for a follow-up appointment to be scheduled. If you have not heard from them within the next 2 business days, please call them directly. ) Dave Gross DO [Primary Care Provider] - Discharge Diet: Cardiac Discharge Activity: Increase activity as tolerated Patient Instructions: Oxycodone/Acetaminophen (By mouth), Olanzapine (By mouth), Opioid Safety, Pain Management Activity Restrictions/Additional Instructions: - Please recheck hemoglobin tomorrow -Monitor hemoglobin weekly -Patient might have transfusion dependent anemia, required transfusions chronically -For her neutropenia, patient is more predisposed to develop infections, monitor for fevers, monitor for UTI, monitor for pneumonia, would be more proactive in treating with antibiotics -For patient's pancytopenia please follow-up with oncology as outpatient -For her back pain please have patient follow with Dr. Arredondo -Monitor for hypercoagulable events, such as DVT or PE, if so please immediately come back to the hospital Discharge Attestations Time Spent in Discharge Care*: greater than 30 min Quality Metrics Clinical Quality Measures [ No reported AMI, CVA or VTE this stay] Coding Level of Care Code 94442 Total time (in minutes) for Discharge: 45 Diagnoses Compression fracture of T12 vertebra S22.080A Dementia F03.90 Uncontrolled pain R52 Recurrent falls R29.6
[2024-05-03 14:01] LABS: Ferritin 197 ng/mL (15-150)
[2024-05-03 14:30] LABS: Iron 38 ug/dL (37-145); Percent Saturation 14.9 % (20-50); Total Iron Binding Capacity 254 mcg/dl; Unsaturated Iron Binding 216 ug/dL (112-347)
[2024-05-03 14:46] LABS: Vitamin B12 301 pg/mL (232-1245)
[2024-05-03] MEDS: sucralfate 1 gm/10 mL Oral Liq UDC PO ×2 (14:49→20:36)
[2024-05-03 15:15] LABS: Folate Level 4.2 ng/mL (4.8-37.3)
--- NOTE | 2024-05-03 16:08 | P.PN_ITS ---
Subjective 2 Subjective: Patient was seen this morning, she is alert to person, to place, not to time, she follows commands, is quite sleepy this morning, plan on discharging patient to senior care facility however hemoglobin has dropped down to 6.5, will transfuse 1 unit PRBC, monitor hemoglobin as inpatient Vitals/I&O/Wt Last Vital Signs Temp 98 F 05/03/24 15:56 Pulse 81 05/03/24 15:56 Resp 16 05/03/24 15:56 BP 105/59 05/03/24 15:56 Pulse Ox 95 05/03/24 15:56 O2 Del Method Room Air 05/03/24 15:12 05/03/24 05/03/24 05/03/24 06:59 14:59 22:59 Intake Total 0 / 0 Balance 0 / 0 Weight last 48 hrs Weight 56.047 kg Weight 54.703 kg Physical Exam 2 Const: COMMON NORMALS: no acute distress HENMT: COMMON NORMALS: normocephalic HEAD & SCALP: normocephalic Neck/C-Spine: COMMON NORMALS: no JVD Resp: COMMON NORMALS: normal respiratory effort, No retractions, No use of accessory muscles and clear to auscultation bilaterally AUSCULTATION: clear to auscultation bilaterally Cardio: COMMON NORMALS: no JVD, regular rate, regular rhythm, S1 normal heart sound present and S2 normal heart sound present RATE: regular rate RHYTHM: regular rhythm HEART SOUNDS: S1 normal heart sound present and S2 normal heart sound present GI: COMMON NORMALS: Normal to inspection, nondistended, normoactive bowel sounds present, Soft to palpation, non-tender, No hepatosplenomegaly present, no masses and no bruits PALPATION: Yes Soft to palpation and Yes No hepatosplenomegaly present Extremity: COMMON NORMALS: no pedal edema Data 05/03/24 13:05 05/03/24 08:17 A&P Assessment and plan (1) Compression fracture of T12 vertebra: (2) Dementia: (3) Uncontrolled pain: (4) Recurrent falls: Plan 84-year-old lady with dementia, history of pancytopenia, brought to the hospital today by family due to history of recurrent falls and increasing back pain. -T12 vertebral fracture on April 17 - CT of the lumbar spine completed today shows worsening of the compression fracture. There is noted to be mild posterior deflection of the cortex into the spinal canal. There was also some degenerative changes and spinal stenosis noted at L3-L4-L5 level which may be resulting in neurogenic claudication leading to recurrent falls. -Patient's family had earlier stated they are not amenable to any surgical interventions -Patient has been falling increasingly at home and it has been tough for family to keep up to keep her safe. -Reports that she has had uncontrolled pain - pain management -Morphine 2 mg IV every 8hours as needed, for breakthrough pain -Oxycodone 5-325 1 tablet every 6 hours as needed. -TLSO brace. -PT OT assessment to assess level of independent functioning and appropriate disposition planning. -Developing neutropenia, monitor, monitor for fevers, -Altered mental status, likely from underlying dementia, monitor, start Zyprexa 5 mg at bedtime tonight -Acute on chronic anemia, Protonix, Carafate, Hemoccult stool, transfuse 1 unit PRBC, monitor for bloody or black stools -History of pancytopenia, will have patient follow-up with oncology as outpatient -Folic acid deficiency start folic acid DVT prophylaxis: SCDs only, no anticoagulation due to platelet count at 79,000, history of chronic thrombocytopenia DNR/DNI Attestations 2 Medical Necessity Statement*: Patient requires hospitalization for acute anemia requiring PRBC, hemoglobin monitoring Diagnoses Compression fracture of T12 vertebra S22.080A Dementia F03.90 Uncontrolled pain R52 Recurrent falls R29.6
[2024-05-03] MEDS: pantoprazole 40 mg SDV IVP (17:05)
[2024-05-03] MEDS: folic acid 1 mg Tablet PO (17:05)
[2024-05-03 20:36] LABS: Basophils % 0.2 %; Eosinophils % 0.2 %; Hematocrit 27.3 % (36-47); Lymphocytes % 38.4 %; Mean Corpuscular Hemoglobin 29.3 pg (27-33); Mean Corpuscular Volume 88.9 fl (85-98); Monocytes # 2.1 10^3/uL (0.2-0.9); Monocytes % 40.6 %; Neutrophils # 1.01 10^3/uL (1.8-7.7); Neutrophils % 19.8 %; Nucleated Red Blood Cells % 0 %; Platelet Count 57 10^3/cmm (157-399); Red Blood Count 3.07 10^6/uL (3.85-5.65); Red Cell Distribution Width 16.3 % (12.1-15.1); White Blood Count 5.08 10^3/uL (3.29-11.43)
[2024-05-03] MEDS: OLANZapine 5 mg ODT PO (20:36)
[2024-05-03 21:11] LABS: Slide Review Slide Review Perform
--- NOTE | 2024-05-03 22:21 | PC.NURSE ---
At beginning of the shift pt was resting in bed sleeping. Shortly after shift change pt became restless and pulled out her IV and her telemetry. This RN and aide assisted pt to the bathroom and offered food and drinks which pt declined. This RN gave the pt her schedule zyprexa. About an hour later pt was still restless and starting to become agitated. This RN reached out to the MD vaca and updated on the situation. gave a one time order for benadryl to help the pt calm down and get some sleep. This RN gave benadryl and the aide helped the pt get comfortable in bed. At this time pt is resting comfortably in bed and is cooperative. Will continue to monitor until next RN takes over care.
[2024-05-04 04:00] VITALS: BP 120/72; PULSE 75; RESP 17; TEMP 36.9; O2SAT 93
[2024-05-04] MEDS: pantoprazole DR 40 mg Tablet PO (06:32)
[2024-05-04 06:45] LABS: Basophils % 0.2 %; Eosinophils % 0.2 %; Hematocrit 25.6 % (36-47); Lymphocytes # 1.4 10^3/uL (0.8-4.8); Lymphocytes % 33.2 %; Mean Corpuscular HGB Conc 32.4 g/dL (30-55); Mean Corpuscular Hemoglobin 28.3 pg (27-33); Mean Corpuscular Volume 87.4 fl (85-98); Mean Platelet Volume 13.4 fL (7.4-10.4); Monocytes # 1.9 10^3/uL (0.2-0.9); Monocytes % 46.6 %; Neutrophils % 18.8 %; Nucleated Red Blood Cells % 0 %; Platelet Count 65 10^3/cmm (157-399); Positive M 1; Red Blood Count 2.93 10^6/uL (3.85-5.65); Red Cell Distribution Width 16.5 % (12.1-15.1); White Blood Count 4.16 10^3/uL (3.29-11.43)
[2024-05-04 07:11] VITALS: BP 130/73; PULSE 87; RESP 15; TEMP 36.8; O2SAT 95
[2024-05-04 07:16] LABS: Anion Gap 12.7 (5-19); Blood Urea Nitrogen 21 mg/dL (8-23); Calcium 9.6 mg/dL (8.5-10.5); Carbon Dioxide 24 mmol/L (22-29); Chloride 108 mmol/L (98-107); Creatinine Clr Calc Pharmacy 38.5353; Glucose 95 mg/dL (65-115); Osmolality Calculated 295 mOsm/kg (285-295); Potassium 3.7 mmol/L (3.5-5.1); Sodium 141 mmol/L (136-145)
[2024-05-04 07:24] LABS: Neutrophils # 0.78 10^3/uL (1.8-7.7); Slide Review Slide Review Perform
[2024-05-04] MEDS: sucralfate 1 gm/10 mL Oral Liq UDC PO ×2 (09:32→13:57)
[2024-05-04] MEDS: folic acid 1 mg Tablet PO (09:32)
[2024-05-04] MEDS: amlodipine 5 mg Tablet PO (09:32)
[2024-05-04 11:29] VITALS: BP 175/79; PULSE 87; RESP 15; TEMP 37; O2SAT 98
--- NOTE | 2024-05-04 11:46 | PC.OT ---
OT TREATMENT HELD TODAY DUE TO SCHEDULED PATIENT D/C
[2024-05-04 14:52] VITALS: BP 175/79; PULSE 87; RESP 15; TEMP 37; O2SAT 98
== END 2024-05-04 14:54 | disposition skilled nursing facility (03) ==
LOC: ER 04-30 00:38 → MEDSURG 04-30 00:56
PROVIDERS: Emergency Medicine; Student in an Organized Health Care Education/Training Program; Admitting Provider Student in an Organized Health Care Education/Training Program; Emergency Provider Nurse Practitioner; PCP Electrodiagnostic Medicine; Visit Provider Family Medicine
DX: S22.080A Wedge compression fracture of T11-T12 vertebra, initial encounter for closed fracture (principal); W19.XXXA Unspecified fall, initial encounter; F03.90 Unspecified dementia, unspecified severity, without behavioral disturbance, psychotic disturbance, mood disturbance, and anxiety; R29.6 Repeated falls; D70.9 Neutropenia, unspecified; D69.6 Thrombocytopenia, unspecified; D61.818 Other pancytopenia; E53.8 Deficiency of other specified B group vitamins; I10 Essential (primary) hypertension; Z66 Do not resuscitate
CPT/HCPCS: 36415; 36430; 70450; 72131; 80048; 80053; 80061; 81001; 82607; 82728; 82746; 83036; 83540; 83550; 83605; 83735; 84439; 84443; 85014; 85018; 85025; 86850; 86900; 86920; 87040; 87426; 96361; 96374; 96375; 97116; 97161; 97166; 99285; G0378; J2270; J2470; J7030; L0460; P9016

== ENCOUNTER → 2025-02-09 09:55 | Outpatient (BNVA) | payer MEDICARE, SELFPAY | PROVIDERS: PCP Electrodiagnostic Medicine; Visit Provider Dermatology | DX: L82.1 Other seborrheic keratosis (principal); L81.4 Other melanin hyperpigmentation; L73.8 Other specified follicular disorders; Z08 Encounter for follow-up examination after completed treatment for malignant neoplasm; Z85.828 Personal history of other malignant neoplasm of skin; D48.5 Neoplasm of uncertain behavior of skin; L57.0 Actinic keratosis | CPT/HCPCS: 11102; 17000; 99203 ==